=== PATIENT | female | born 1950 | race Caucasian/White ===

== ENCOUNTER 2017-01-24 08:54 | Inpatient (IN) | payer MEDICARE, OTHER ==
[~2017-01-24] VITALS: Ht 162.6 cm; Wt 71.3 kg
[2017-01-24] MEDS ORDERED: SODIUM CHLORIDE 0.9% 1,000 ML IV ONE ×2 (09:19→13:18)
[2017-01-24] MEDS ORDERED: ONDANSETRON 2MG/ML, 2ML IVPush ONE ×2 (09:30→12:30)
[2017-01-24] MEDS ORDERED: SODIUM CHLORIDE FLUSH 10ML SYR IVF ONE (09:30)
[2017-01-24] MEDS ORDERED: SODIUM CHLORIDE 0.9% 1,000ML IVBOLUS ONE (09:30)
[2017-01-24] MEDS ORDERED: MORPHINE SULFATE 4 MG/ML, 1ML ONE ×5 (09:32→13:57)
[2017-01-24] MEDS ORDERED: ONDANSETRON 2MG/ML, 2ML ONE ×2 (09:33→13:58)
[2017-01-24] MEDS: MORPHINE SULFATE 4 MG/ML, 1ML IVPush PRN ×6 (09:58→20:58)
[2017-01-24] MEDS ORDERED: ESCI10TA PO (10:06)
[2017-01-24] MEDS ORDERED: TRAM100T2 PO (10:06)
[2017-01-24] MEDS ORDERED: ALPR0.25 PO (10:06)
[2017-01-24 10:17] LABS: HEMOGLOBIN 13.7 g/dL (11.7-16.4)
[2017-01-24 10:30] LABS: ASPARTATE AMINO TRANSFERASE 21 U/L (15-37); BLOOD UREA NITROGEN 9 mg/dL (7-18)
[2017-01-24] MEDS ORDERED: OMNIPAQUE 350 MG/ML, 100ML BOTTLE ONE (10:57)
[2017-01-24 12:10] LABS: PATH.CAST-FLAG NOT PRESENT; SPERM-FLAG NOT PRESENT; SRC-FLAG NOT PRESENT; XTAL-FLAG NOT PRESENT; YLC-FLAG NOT PRESENT
[2017-01-24] MEDS ORDERED: ENALAPRILAT 1.25 MG/ML, 2ML IVPush PRN (13:30)
[2017-01-24] MEDS ORDERED: MORPHINE SULFATE 4 MG/ML, 1ML IVPush PRN (13:30)
[2017-01-24] MEDS ORDERED: ONDANSETRON 2MG/ML, 2ML IVPush PRN (13:30)
[2017-01-24] MEDS ORDERED: LORazepam 2 MG/ML, 1ML IVPush PRN (13:30)
[2017-01-24] MEDS ORDERED: SODIUM CHLORIDE FLUSH 10ML SYR IVF PRN (13:30)
[2017-01-24 14:42] VITALS: BP 149/82
[2017-01-24] MEDS: SODIUM CHLORIDE 0.9% 1,000 ML IV SCH ×2 (15:19→21:17)
[2017-01-24] MEDS ORDERED: POTASSIUM PHOSPHATE 22 MEQ in SODIUM CHLORIDE 0.9% 500 ML IV ONE (15:30)
[2017-01-24] MEDS: ONDANSETRON 2MG/ML, 2ML IVP PRN (18:59)
[2017-01-24 19:26] VITALS: BP 164/90
[2017-01-25] MEDS: MORPHINE SULFATE 4 MG/ML, 1ML IVPush PRN ×3 (00:24→08:50)
[2017-01-25 01:46] VITALS: BP 174/96
[2017-01-25] MEDS ORDERED: morphine SULFATE 10 MG/ML, 1ML ONE (03:28)
[2017-01-25] MEDS: ONDANSETRON 2MG/ML, 2ML IVP PRN ×2 (03:35→08:50)
[2017-01-25 03:38] VITALS: BP 176/84
[2017-01-25] MEDS: SODIUM CHLORIDE 0.9% 1,000 ML IV SCH (05:17)
[2017-01-25 05:55] LABS: BLOOD UREA NITROGEN 7 mg/dL (7-18)
[2017-01-25 05:58] LABS: ASPARTATE AMINO TRANSFERASE 21 U/L (15-37)
[2017-01-25 06:00] VITALS: BP 167/87
[2017-01-25 06:09] LABS: HEMOGLOBIN 14.3 g/dL (11.7-16.4)
[2017-01-25 07:37] VITALS: BP 166/84
[2017-01-25] MEDS: CITALOPRAM 20 MG TABLET PO SCH (08:45)
[2017-01-25] MEDS: PANTOPRAZOLE 40 MG IV IVP SCH (08:45)
[2017-01-25] MEDS ORDERED: HYDROcodone/APAP 5/325 TABLET PO PRN (11:30)
[2017-01-25] MEDS: LISINOPRIL 5 MG TABLET PO SCH (14:18)
[2017-01-25] MEDS ORDERED: ENALAPRILAT 1.25 MG/ML, 2ML IVPush PRN (14:31)
[2017-01-25 15:41] VITALS: BP 167/78
[2017-01-25] MEDS: ACETAMINOPHEN 325 MG TABLET PO PRN ×2 (17:44→23:37)
[2017-01-25 19:20] VITALS: BP 178/93
[2017-01-26 02:23] VITALS: BP 164/89
[2017-01-26 05:40] LABS: HEMOGLOBIN 13.6 g/dL (11.7-16.4)
[2017-01-26 05:58] LABS: BLOOD UREA NITROGEN 11 mg/dL (7-18)
[2017-01-26] MEDS: ACETAMINOPHEN 325 MG TABLET PO PRN (06:28)
[2017-01-26] MEDS: PANTOPRAZOLE 40 MG IV IVP SCH (08:12)
[2017-01-26] MEDS: LISINOPRIL 5 MG TABLET PO SCH (08:12)
[2017-01-26] MEDS: CITALOPRAM 20 MG TABLET PO SCH (08:12)
[2017-01-26 08:29] VITALS: BP 154/77
[2017-01-26] MEDS ORDERED: DOCU-30 PO (09:45)
[2017-01-26] MEDS ORDERED: LISI5TAB7 PO (09:45)
== END 2017-01-26 10:34 | disposition home or self-care (01) | DRG 375 ==
LOC: ED 10:55 → EDIP 13:17 → 3NW 14:34
PROVIDERS: ADMIT Family Medicine; ATTEND Family Medicine
PROC: 0T9B70Z Drainage of Bladder with Drainage Device, Via Natural or Artificial Opening (ICD-10-PCS; principal; 2017-01-24)
DX: C19 Malignant neoplasm of rectosigmoid junction (principal); K56.60 Unspecified intestinal obstruction; N13.30 Unspecified hydronephrosis; C78.6 Secondary malignant neoplasm of retroperitoneum and peritoneum; R11.2 Nausea with vomiting, unspecified; D72.829 Elevated white blood cell count, unspecified; G47.00 Insomnia, unspecified; N32.0 Bladder-neck obstruction; F41.9 Anxiety disorder, unspecified; R73.9 Hyperglycemia, unspecified; F32.9 Major depressive disorder, single episode, unspecified; I10 Essential (primary) hypertension; Z80.8 Family history of malignant neoplasm of other organs or systems; Z90.710 Acquired absence of both cervix and uterus
CPT/HCPCS: 36415; 74022; 74177; 80048; 80053; 81001; 83735; 84100; 85025; 85610; 85730; 93005; 96361; 96374; 96375; 96376; J2405; Q9967; C9113; J7030; J7040

== ENCOUNTER → 2017-02-13 | Outpatient (CLI) | payer MEDICARE, OTHER ==
[~2017-02-13] MED LIST: ALPR0.25 PO; DOCU-30 PO; ESCI10TA PO; LISI5TAB7 PO; TRAM100T2 PO
== END | disposition home or self-care (01) ==
LOC: WOUND 10:49
PROVIDERS: ATTEND Internal Medicine
DX: Z46.89 Encounter for fitting and adjustment of other specified devices (principal); C56.9 Malignant neoplasm of unspecified ovary
CPT/HCPCS: G0463; WOU0463

== ENCOUNTER 2017-02-17 07:13 | Inpatient (IN) | payer MEDICARE ==
[~2017-02-17] VITALS: Ht 162.6 cm; Wt 65.6 kg
[2017-02-17 08:00] VITALS: BP 145/88
[2017-02-17 09:44] LABS: ASPARTATE AMINO TRANSFERASE 30 U/L (15-37); BLOOD UREA NITROGEN 15 mg/dL (7-18)
[2017-02-17] MEDS ORDERED: MIDAZOLAM 1 MG/ML, 2ML ONE (10:57)
[2017-02-17] MEDS ORDERED: FENTANYL PF 250 MCG/5ML ONE (10:57)
[2017-02-17] MEDS ORDERED: ROPIvacaine/PF 0.2%, 20 ML ONE (12:06)
[2017-02-17] MEDS ORDERED: SUCCINYLCHOLINE 20 MG/ML, 10ML ONE (12:40)
[2017-02-17] MEDS ORDERED: PROPOFOL 10 MG/ML, 20ML ONE (12:40)
[2017-02-17] MEDS ORDERED: CEFAZOLIN 1,000 MG ONE (12:40)
[2017-02-17] MEDS ORDERED: hydrALAzine 20 MG/ML, 1ML ONE (12:40)
[2017-02-17] MEDS ORDERED: DEXAMETHASONE 4 MG/ML, 1ML ONE (12:40)
[2017-02-17] MEDS ORDERED: ROCURONIUM 10 MG/ML ONE (12:40)
[2017-02-17] MEDS ORDERED: HYDROmorphone 1 MG/ML, 1ML ONE (14:48)
[2017-02-17] MEDS ORDERED: THROMBIN 20,000 UNIT VIAL TP ONE (15:00)
[2017-02-17] MEDS ORDERED: EPHEDRINE 50 MG/ML, 1ML IVPush PRN (15:00)
[2017-02-17] MEDS ORDERED: DO NOT GIVE MC SCH (15:00)
[2017-02-17] MEDS: BUPIVACAINE/PF 0.5%, 30ML 62.5 ML in SODIUM CHLORIDE 0.9% 187.5 ML EPIDCONT SCH (15:15)
[2017-02-17 15:56] LABS: DIFF TOTAL CELLS COUNTED 100 CELL DIFF
[2017-02-17 16:17] LABS: ANISOCYTOSIS 1+
[2017-02-17 16:18] LABS: LARGE PLATELETS 1+
[2017-02-17 16:20] LABS: VERIFY COUNTS? YES
[2017-02-17] MEDS ORDERED: LABETALOL 5MG/ML, 20ML IV PRN (16:30)
[2017-02-17] MEDS ORDERED: METOCLOPRAMIDE 5 MG/ML, 2ML IV PRN (16:30)
[2017-02-17] MEDS ORDERED: ONDANSETRON 2MG/ML, 2ML IVPush PRN (16:30)
[2017-02-17] MEDS ORDERED: OXYcodone 5 MG/5 ML ORAL.SOL UDC PO PRN (16:30)
[2017-02-17] MEDS ORDERED: ACETAMINOPHEN 325 MG TABLET PO PRN (16:30)
[2017-02-17] MEDS ORDERED: FENTANYL PF 100 MCG/2ML IV PRN (16:30)
[2017-02-17] MEDS ORDERED: hydrALAzine 20 MG/ML, 1ML IV PRN (16:30)
[2017-02-17] MEDS ORDERED: ALBUMIN HUMAN 5% 500 ML ONE (16:59)
[2017-02-17] MEDS ORDERED: PLEASE ENTER HEIGHT AND WEIGHT MC SCH ×2 (17:00→19:00)
[2017-02-17] MEDS ORDERED: HYDROmorphone 2 MG/ML, 1ML ONE (17:28)
[2017-02-17] MEDS: HYDROmorphone 1 MG/ML, 1ML IV PRN ×2 (17:32→17:45)
[2017-02-17 17:40] LABS: BLOOD UREA NITROGEN 11 mg/dL (7-18)
[2017-02-17 18:30] VITALS: BP 80/46
[2017-02-17] MEDS ORDERED: POTASSIUM CHLORIDE 20 MEQ in D5%-LACTATED RINGERS 1,000 ML IV SCH (18:30)
[2017-02-17 18:44] LABS: DIFF TOTAL CELLS COUNTED 100 CELL DIFF
[2017-02-17 19:17] LABS: ANISOCYTOSIS 1+
[2017-02-17 19:18] LABS: LARGE PLATELETS 1+; VERIFY COUNTS? YES
[2017-02-17] MEDS ORDERED: MORPHINE SULFATE 4 MG/ML, 1ML ONE (20:43)
[2017-02-17] MEDS: morphine SULFATE 10 MG/ML, 1ML IV PRN (20:51)
[2017-02-17] MEDS ORDERED: SODIUM CHLORIDE 0.9% 1,000 ML IVBOLUS PRN (21:23)
[2017-02-17] MEDS ORDERED: KETOROLAC 30 MG/1 ML IM PRN (22:00)
[2017-02-17] MEDS: KETOROLAC 30 MG/1 ML IV PRN (23:17)
[2017-02-17] MEDS: PLEASE ENTER HEIGHT AND WEIGHT MC SCH (23:30)
[2017-02-18] VITALS (12 sets, daily range): BP systolic 93–139; BP diastolic 58–79
[2017-02-18] MEDS: morphine SULFATE 10 MG/ML, 1ML IV PRN ×6 (00:11→18:39)
[2017-02-18] MEDS ORDERED: MORPHINE SULFATE 4 MG/ML, 1ML ONE (02:40)
[2017-02-18] MEDS: PLEASE ENTER HEIGHT AND WEIGHT MC SCH (04:48)
[2017-02-18 06:09] LABS: BLOOD UREA NITROGEN 16 mg/dL (7-18)
[2017-02-18 06:19] LABS: DIFF TOTAL CELLS COUNTED 100 CELL DIFF
[2017-02-18 06:21] LABS: VERIFY COUNTS? YES
[2017-02-18 06:22] LABS: LARGE PLATELETS 1+
[2017-02-18] MEDS: KETOROLAC 30 MG/1 ML IV PRN ×3 (07:17→22:25)
[2017-02-18] MEDS ORDERED: D5%-LR+KCL 20MEQ 1,000 ML IV SCH (07:30)
[2017-02-18] MEDS: ONDANSETRON 2MG/ML, 2ML IV PRN (13:05)
[2017-02-18] MEDS: BUPIVACAINE/PF 0.5%, 30ML 62.5 ML in SODIUM CHLORIDE 0.9% 187.5 ML EPIDCONT SCH (15:41)
[2017-02-18] MEDS: D5%-LR+KCL 20MEQ 1,000 ML IV SCH ×2 (16:27→23:53)
[2017-02-19] MEDS ORDERED: MORPHINE SULFATE 4 MG/ML, 1ML ONE ×2 (00:20→21:46)
[2017-02-19] MEDS: ONDANSETRON 2MG/ML, 2ML IV PRN ×3 (00:29→16:52)
[2017-02-19] MEDS: morphine SULFATE 10 MG/ML, 1ML IV PRN ×4 (00:31→21:52)
[2017-02-19 01:20] VITALS: BP 141/84
[2017-02-19] MEDS ORDERED: MEPERIDINE/PF 50 MG/ML ONE ×2 (01:25→04:47)
[2017-02-19] MEDS: MEPERIDINE/PF 25MG/0.5ML IV PRN ×2 (01:28→04:52)
[2017-02-19] MEDS: KETOROLAC 30 MG/1 ML IV PRN ×3 (04:00→18:11)
[2017-02-19 07:36] VITALS: BP 109/64
[2017-02-19] MEDS: D5%-LR+KCL 20MEQ 1,000 ML IV SCH ×2 (08:16→17:02)
[2017-02-19] MEDS: BUPIVACAINE/PF 0.5%, 30ML 62.5 ML in SODIUM CHLORIDE 0.9% 187.5 ML EPIDCONT SCH (12:08)
[2017-02-19 13:33] VITALS: BP 124/74
[2017-02-19 20:00] VITALS: BP 144/79
[2017-02-20] MEDS: KETOROLAC 30 MG/1 ML IV PRN ×3 (00:51→13:37)
[2017-02-20] MEDS: D5%-LR+KCL 20MEQ 1,000 ML IV SCH ×2 (00:51→14:35)
[2017-02-20 02:42] VITALS: BP 164/86
[2017-02-20] MEDS: morphine SULFATE 10 MG/ML, 1ML IV PRN ×4 (03:03→18:34)
[2017-02-20] MEDS: BUPIVACAINE/PF 0.5%, 30ML 62.5 ML in SODIUM CHLORIDE 0.9% 187.5 ML EPIDCONT SCH ×2 (04:00→23:44)
[2017-02-20 06:35] VITALS: BP 172/90
[2017-02-20] MEDS: ONDANSETRON 2MG/ML, 2ML IV PRN ×2 (11:02→18:33)
[2017-02-20] MEDS: OXYcodone/APAP 7.5/325MG TABLET PO PRN (14:05)
[2017-02-20 15:50] VITALS: BP 157/82
[2017-02-20 20:00] VITALS: BP 152/81
[2017-02-20 22:15] VITALS: BP 158/86
[2017-02-21] MEDS: OXYcodone/APAP 7.5/325MG TABLET PO PRN ×4 (00:18→21:28)
[2017-02-21] MEDS: D5%-LR+KCL 20MEQ 1,000 ML IV SCH ×2 (00:49→14:40)
[2017-02-21] MEDS: morphine SULFATE 10 MG/ML, 1ML IV PRN ×2 (00:49→04:06)
[2017-02-21] MEDS: KETOROLAC 30 MG/1 ML IV PRN ×3 (00:49→17:51)
[2017-02-21 02:00] VITALS: BP 167/77
[2017-02-21 03:05] LABS: BLOOD UREA NITROGEN 19 mg/dL (7-18)
[2017-02-21 04:07] LABS: DIFF TOTAL CELLS COUNTED 100 CELL DIFF
[2017-02-21 04:11] LABS: ANISOCYTOSIS 1+; HYPOCHROMIA 1+; VERIFY COUNTS? YES
[2017-02-21 04:12] LABS: GIANT PLATELETS 1+
[2017-02-21 08:05] VITALS: BP 164/80
[2017-02-21 14:00] VITALS: BP 165/80
[2017-02-21 20:00] VITALS: BP 171/81
[2017-02-22 00:30] VITALS: BP 164/82
[2017-02-22] MEDS: KETOROLAC 30 MG/1 ML IV PRN ×4 (00:33→21:05)
[2017-02-22] MEDS: morphine SULFATE 10 MG/ML, 1ML IV PRN ×2 (00:33→01:44)
[2017-02-22] MEDS: D5%-LR+KCL 20MEQ 1,000 ML IV SCH ×4 (00:40→21:06)
[2017-02-22] MEDS: BUPIVACAINE/PF 0.5%, 30ML 62.5 ML in SODIUM CHLORIDE 0.9% 187.5 ML EPIDCONT SCH (01:10)
[2017-02-22 07:53] VITALS: BP 145/81
[2017-02-22] MEDS: OXYcodone/APAP 7.5/325MG TABLET PO PRN ×3 (11:08→22:29)
[2017-02-22 12:47] VITALS: BP 147/73
[2017-02-22 19:30] VITALS: BP 157/78
[2017-02-23] MEDS: BUPIVACAINE/PF 0.5%, 30ML 62.5 ML in SODIUM CHLORIDE 0.9% 187.5 ML EPIDCONT SCH (01:15)
[2017-02-23] MEDS: KETOROLAC 30 MG/1 ML IV PRN (02:58)
[2017-02-23] MEDS: OXYcodone/APAP 10/325MG TABLET PO PRN ×3 (04:47→19:16)
[2017-02-23 04:55] VITALS: BP 163/78
[2017-02-23 07:25] LABS: BLOOD UREA NITROGEN 12 mg/dL (7-18)
[2017-02-23] MEDS: D5%-LR+KCL 20MEQ 1,000 ML IV SCH (07:41)
[2017-02-23 07:58] VITALS: BP 151/71
[2017-02-23 10:46] LABS: PATH.CAST-FLAG NOT PRESENT; SPERM-FLAG NOT PRESENT; SRC-FLAG NOT PRESENT; XTAL-FLAG NOT PRESENT; YLC-FLAG NOT PRESENT
[2017-02-23 14:09] VITALS: BP 154/81
[2017-02-23 19:38] VITALS: BP 157/80
[2017-02-23] MEDS ORDERED: MORPHINE SULFATE 4 MG/ML, 1ML ONE (23:24)
[2017-02-23] MEDS: morphine SULFATE 10 MG/ML, 1ML IV PRN (23:28)
[2017-02-24] MEDS: OXYcodone/APAP 10/325MG TABLET PO PRN ×4 (01:49→19:02)
[2017-02-24 02:00] VITALS: BP 142/77
[2017-02-24 05:57] LABS: DIFF TOTAL CELLS COUNTED 100 CELL DIFF
[2017-02-24 06:00] LABS: ANISOCYTOSIS 1+; VERIFY COUNTS? YES
[2017-02-24 06:01] LABS: HYPOCHROMIA 1+; LARGE PLATELETS 1+; POLYCHROMASIA 1+
[2017-02-24 08:16] VITALS: BP 150/74
[2017-02-24 14:03] VITALS: BP 145/80
[2017-02-24] MEDS: CIPROFLOXACIN/PMX 400MG/200ML 200 ML IV SCH (15:12)
[2017-02-24 19:51] VITALS: BP 143/74
[2017-02-24] MEDS: morphine SULFATE 10 MG/ML, 1ML IV PRN (23:10)
[2017-02-25] MEDS: OXYcodone/APAP 10/325MG TABLET PO PRN ×4 (01:12→20:52)
[2017-02-25] MEDS: CIPROFLOXACIN/PMX 400MG/200ML 200 ML IV SCH ×2 (03:00→13:41)
[2017-02-25 03:04] VITALS: BP 135/71
[2017-02-25 08:00] VITALS: BP 154/93
[2017-02-25 14:16] VITALS: BP 147/84
[2017-02-25] MEDS: NYSTATIN 500,000 UNITS/5 ML UDC PO SCH ×2 (16:00→21:09)
[2017-02-25 19:52] VITALS: BP 139/79
[2017-02-26] MEDS: CIPROFLOXACIN/PMX 400MG/200ML 200 ML IV SCH ×2 (01:23→15:24)
[2017-02-26 02:15] VITALS: BP 135/75
[2017-02-26] MEDS: OXYcodone/APAP 10/325MG TABLET PO PRN ×4 (04:33→21:52)
[2017-02-26 05:11] LABS: BLOOD UREA NITROGEN 10 mg/dL (7-18)
[2017-02-26 05:49] LABS: DIFF TOTAL CELLS COUNTED 100 CELL DIFF
[2017-02-26 05:51] LABS: LARGE PLATELETS 1+; POLYCHROMASIA 1+; VERIFY COUNTS? YES
[2017-02-26 05:52] LABS: ANISOCYTOSIS 1+
[2017-02-26] MEDS: NYSTATIN 500,000 UNITS/5 ML UDC PO SCH ×4 (06:18→20:50)
[2017-02-26 07:42] VITALS: BP 146/74
[2017-02-26 13:45] VITALS: BP 138/80
[2017-02-26 18:56] VITALS: BP 134/74
[2017-02-27] MEDS: CIPROFLOXACIN/PMX 400MG/200ML 200 ML IV SCH ×2 (01:30→13:29)
[2017-02-27 01:41] VITALS: BP 135/72
[2017-02-27] MEDS: OXYcodone/APAP 10/325MG TABLET PO PRN ×4 (06:05→22:32)
[2017-02-27] MEDS: NYSTATIN 500,000 UNITS/5 ML UDC PO SCH ×4 (06:11→22:32)
[2017-02-27 06:40] VITALS: BP 145/78
[2017-02-27 13:08] VITALS: BP 123/71
[2017-02-27 19:39] VITALS: BP 148/69
[2017-02-28] MEDS: CIPROFLOXACIN/PMX 400MG/200ML 200 ML IV SCH ×2 (01:46→13:45)
[2017-02-28 02:45] VITALS: BP 144/75
[2017-02-28] MEDS: OXYcodone/APAP 10/325MG TABLET PO PRN ×4 (05:37→18:44)
[2017-02-28] MEDS: NYSTATIN 500,000 UNITS/5 ML UDC PO SCH ×4 (05:44→21:47)
[2017-02-28 06:39] LABS: BLOOD UREA NITROGEN 6 mg/dL (7-18)
[2017-02-28 06:52] LABS: DIFF TOTAL CELLS COUNTED 100 CELL DIFF
[2017-02-28 06:53] LABS: VERIFY COUNTS? YES
[2017-02-28 06:54] LABS: ANISOCYTOSIS 1+; POLYCHROMASIA 1+
[2017-02-28 06:55] LABS: LARGE PLATELETS 1+
[2017-02-28 07:46] VITALS: BP 134/70
[2017-02-28 13:54] VITALS: BP 132/73
[2017-02-28 22:48] VITALS: BP 139/70
[2017-03-01] MEDS: CIPROFLOXACIN/PMX 400MG/200ML 200 ML IV SCH (01:54)
[2017-03-01] MEDS: OXYcodone/APAP 10/325MG TABLET PO PRN ×5 (02:16→23:10)
[2017-03-01 02:24] VITALS: BP 145/72
[2017-03-01] MEDS: NYSTATIN 500,000 UNITS/5 ML UDC PO SCH ×4 (06:02→23:10)
[2017-03-01 08:55] VITALS: BP 131/73
[2017-03-01 16:08] VITALS: BP 133/71
[2017-03-01] MEDS: LEVOFLOXACIN 750 MG TABLET PO SCH (17:45)
[2017-03-01 18:54] VITALS: BP 125/72
[2017-03-02 03:30] VITALS: BP 135/78
[2017-03-02] MEDS: NYSTATIN 500,000 UNITS/5 ML UDC PO SCH ×4 (06:00→21:00)
[2017-03-02] MEDS: OXYcodone/APAP 10/325MG TABLET PO PRN ×4 (06:14→22:33)
[2017-03-02 07:33] VITALS: BP 133/79
[2017-03-02 07:44] LABS: BLOOD UREA NITROGEN 7 mg/dL (7-18)
[2017-03-02] MEDS: LEVOFLOXACIN 750 MG TABLET PO SCH (08:12)
[2017-03-02 15:20] VITALS: BP 137/69
[2017-03-02 20:04] VITALS: BP 124/72
[2017-03-03 03:00] VITALS: BP 119/76
[2017-03-03] MEDS: OXYcodone/APAP 10/325MG TABLET PO PRN ×5 (03:36→22:28)
[2017-03-03 05:46] LABS: DIFF TOTAL CELLS COUNTED 100 CELL DIFF
[2017-03-03 05:47] LABS: VERIFY COUNTS? YES
[2017-03-03 05:48] LABS: ANISOCYTOSIS 1+; POLYCHROMASIA 1+
[2017-03-03] MEDS: NYSTATIN 500,000 UNITS/5 ML UDC PO SCH ×4 (06:00→21:00)
[2017-03-03] MEDS: LEVOFLOXACIN 750 MG TABLET PO SCH (07:57)
[2017-03-03 08:02] VITALS: BP 128/74
[2017-03-03 15:37] VITALS: BP 127/76
[2017-03-03] MEDS ORDERED: CYSTO CONRAY II 250 ML VIAL UR ONE (17:05)
[2017-03-03 19:02] VITALS: BP 125/80
[2017-03-04 02:00] VITALS: BP 117/71
[2017-03-04] MEDS: NYSTATIN 500,000 UNITS/5 ML UDC PO SCH ×2 (03:23→11:00)
[2017-03-04] MEDS: OXYcodone/APAP 10/325MG TABLET PO PRN ×3 (03:58→13:26)
[2017-03-04 08:06] LABS: DIFF TOTAL CELLS COUNTED 100 CELL DIFF
[2017-03-04 08:46] LABS: ANISOCYTOSIS 1+; HYPOCHROMIA 1+; VERIFY COUNTS? YES
[2017-03-04 09:00] VITALS: BP 123/73
[2017-03-04] MEDS: LEVOFLOXACIN 750 MG TABLET PO SCH (09:02)
[2017-03-04] MEDS ORDERED: LEVO500T33 PO (11:48)
[2017-03-04] MEDS ORDERED: OXYC-229 PO (11:51)
[2017-03-04] MEDS ORDERED: ONDA-39 PO (11:53)
== END 2017-03-04 14:30 | disposition home health service (06) | DRG 330 ==
LOC: 4NOR 07:13 → 3NW 17:11
PROVIDERS: ADMIT Specialist; ATTEND Specialist
PROC: 0DTF0ZZ Resection of Right Large Intestine, Open Approach (ICD-10-PCS; 2017-02-17)
PROC: 07BC0ZX Excision of Pelvis Lymphatic, Open Approach, Diagnostic (ICD-10-PCS; 2017-02-17)
PROC: 0DBS0ZZ (ICD-10-PCS; 2017-02-17)
PROC: 0WBF0ZX Excision of Abdominal Wall, Open Approach, Diagnostic (ICD-10-PCS; 2017-02-17)
PROC: 0D1B0Z4 Bypass Ileum to Cutaneous, Open Approach (ICD-10-PCS; 2017-02-17)
PROC: 0DBW0ZZ Excision of Peritoneum, Open Approach (ICD-10-PCS; 2017-02-17)
PROC: 0DTN0ZZ Resection of Sigmoid Colon, Open Approach (ICD-10-PCS; 2017-02-17)
PROC: 0UT70ZZ Resection of Bilateral Fallopian Tubes, Open Approach (ICD-10-PCS; 2017-02-17)
PROC: 0UT20ZZ Resection of Bilateral Ovaries, Open Approach (ICD-10-PCS; 2017-02-17)
PROC: 30240N1 Transfusion of Nonautologous Red Blood Cells into Central Vein, Open Approach (ICD-10-PCS; principal; 2017-02-18)
DX: C18.7 Malignant neoplasm of sigmoid colon (principal); C56.9 Malignant neoplasm of unspecified ovary; N13.30 Unspecified hydronephrosis; C18.1 Malignant neoplasm of appendix; N39.0 Urinary tract infection, site not specified; C18.2 Malignant neoplasm of ascending colon; C78.6 Secondary malignant neoplasm of retroperitoneum and peritoneum; R19.00 Intra-abdominal and pelvic swelling, mass and lump, unspecified site; D64.9 Anemia, unspecified; F32.9 Major depressive disorder, single episode, unspecified; F41.9 Anxiety disorder, unspecified; G89.29 Other chronic pain; B96.1 Klebsiella pneumoniae [K. pneumoniae] as the cause of diseases classified elsewhere
CPT/HCPCS: 36415; 71010; 74000; 74430; 80048; 80053; 81001; 82962; 85014; 85018; 85025; 86850; 86900; 86923; 87040; 87070; 87077; 87086; 87186; 87205; 88112; 88304; 88305; 88307; 88341; 88342; 88360; C1729; J0690; J0744; J1100; J1170; J1885; J2175; J2250; J2405; J2704; J2795; J3010; J3480; J3490; P9045; Q9958; C1765; G0461; J0330; J0360; J2270; J7050; J7121; P9016

== ENCOUNTER → 2017-03-12 | Outpatient (CLI) | payer MEDICARE ==
[~2017-03-12] MED LIST changes: +LEVO500T33 PO; +ONDA-39 PO; +OXYC-229 PO
== END | disposition home or self-care (01) ==
LOC: WOUND 13:40
PROVIDERS: ATTEND Internal Medicine Cardiovascular Disease
DX: T81.89XD Other complications of procedures, not elsewhere classified, subsequent encounter (principal); I10 Essential (primary) hypertension; F41.9 Anxiety disorder, unspecified; F32.9 Major depressive disorder, single episode, unspecified; G47.00 Insomnia, unspecified; Z85.43 Personal history of malignant neoplasm of ovary; Z46.89 Encounter for fitting and adjustment of other specified devices; Z90.710 Acquired absence of both cervix and uterus; Y83.8 Other surgical procedures as the cause of abnormal reaction of the patient, or of later complication, without mention of misadventure at the time of the procedure
CPT/HCPCS: G0463; WOU0463

== ENCOUNTER → 2017-03-16 | Outpatient (CLI) | payer MEDICARE | END | disposition home or self-care (01) | LOC: WOUND 13:26 | PROVIDERS: ATTEND Internal Medicine | DX: T81.89XD Other complications of procedures, not elsewhere classified, subsequent encounter (principal); F41.9 Anxiety disorder, unspecified; I10 Essential (primary) hypertension; G47.00 Insomnia, unspecified; F32.9 Major depressive disorder, single episode, unspecified; Z46.89 Encounter for fitting and adjustment of other specified devices; Z85.43 Personal history of malignant neoplasm of ovary; Y83.8 Other surgical procedures as the cause of abnormal reaction of the patient, or of later complication, without mention of misadventure at the time of the procedure | CPT/HCPCS: G0463; WOU0463 ==

== ENCOUNTER → 2017-03-23 | Outpatient (CLI) | payer MEDICARE | END | disposition home or self-care (01) | LOC: WOUND 13:43 | PROVIDERS: ATTEND Physician Assistant | DX: T81.89XD Other complications of procedures, not elsewhere classified, subsequent encounter (principal); C56.9 Malignant neoplasm of unspecified ovary; F41.9 Anxiety disorder, unspecified; G47.00 Insomnia, unspecified; F32.9 Major depressive disorder, single episode, unspecified; Z85.038 Personal history of other malignant neoplasm of large intestine; Z90.710 Acquired absence of both cervix and uterus; Z46.89 Encounter for fitting and adjustment of other specified devices; Y83.8 Other surgical procedures as the cause of abnormal reaction of the patient, or of later complication, without mention of misadventure at the time of the procedure | CPT/HCPCS: G0463; WOU0463 ==

== ENCOUNTER 2017-04-29 02:18 | Emergency (ER) | payer MEDICARE ==
[~2017-04-29] VITALS: Ht 165.1 cm; Wt 62.0 kg
[2017-04-29 02:23] VITALS: BP 116/68
[2017-04-29] MEDS ORDERED: OXYC1TAB8 PO (09:46)
[2017-04-29] MEDS ORDERED: FENT1PAT77 TD (11:41)
[2017-04-29] MEDS ORDERED: LACT1CAP24 PO (16:57)
[2017-04-29] MEDS ORDERED: CEFD300C37 PO ×2 (16:57→17:25)
== END 2017-04-29 02:26 ==
LOC: ED 02:21
DX: R07.89 Other chest pain (principal); Z90.710 Acquired absence of both cervix and uterus; Z85.09 Personal history of malignant neoplasm of other digestive organs
CPT/HCPCS: 99283

== ENCOUNTER 2017-04-29 02:21 | Inpatient (IN) | payer MEDICARE ==
[~2017-04-29] VITALS: Ht 162.6 cm; Wt 56.2 kg
[2017-04-29] MEDS ORDERED: ASPIRIN 81 MG TABLET CHEW PO ONE (03:30)
[2017-04-29 03:40] LABS: BLOOD UREA NITROGEN 23 mg/dL (7-18)
[2017-04-29 03:45] LABS: IS PT STATUS REG ER OR PRE ER? YES
[2017-04-29] MEDS ORDERED: OMNIPAQUE 350 MG/ML, 100ML BOTTLE ONE (04:27)
[2017-04-29] MEDS ORDERED: MORPHINE SULFATE 4 MG/ML, 1ML ONE (04:51)
[2017-04-29] MEDS ORDERED: ONDANSETRON 2MG/ML, 2ML ONE (04:51)
[2017-04-29] MEDS ORDERED: ONDANSETRON 2MG/ML, 2ML IVPush ONE (05:00)
[2017-04-29] MEDS ORDERED: MORPHINE SULFATE 4 MG/ML, 1ML IVPush PRN ×2 (05:00→05:30)
[2017-04-29] MEDS ORDERED: ACETAMINOPHEN 325 MG TABLET PO PRN (05:30)
[2017-04-29] MEDS ORDERED: ENOXAPARIN 40 MG/0.4 ML SQ SCH (05:30)
[2017-04-29] MEDS ORDERED: morphine SULFATE 10 MG/ML, 1ML IVPush PRN (05:30)
[2017-04-29] MEDS ORDERED: ONDANSETRON 2MG/ML, 2ML IVPush PRN (05:30)
[2017-04-29] MEDS ORDERED: SODIUM CHLORIDE 0.9% 1,000 ML IV SCH (06:00)
[2017-04-29] MEDS ORDERED: ONDANSETRON 8 MG TABLET PO PRN (06:00)
[2017-04-29] MEDS ORDERED: FENTANYL 25 MCG PATCH TD SCH (06:00)
[2017-04-29 06:27] VITALS: BP 107/71
[2017-04-29 06:30] VITALS: BP 107/71
[2017-04-29 08:00] LABS: IS PT STATUS REG ER OR PRE ER? NO
[2017-04-29] MEDS: SODIUM CHLORIDE 0.9% 1,000 ML IV SCH ×2 (08:51→14:41)
[2017-04-29] MEDS: OXYcodone/APAP 7.5/325MG TABLET PO PRN ×2 (08:57→13:51)
[2017-04-29] MEDS ORDERED: OXYC1TAB8 PO (09:46)
[2017-04-29] MEDS ORDERED: REGADENOSON 0.4 MG/5 ML SYRINGE ONE (10:45)
[2017-04-29] MEDS ORDERED: FENT1PAT77 TD (11:41)
[2017-04-29 11:52] LABS: IS PT STATUS REG ER OR PRE ER? NO
[2017-04-29 14:55] VITALS: BP 118/80
[2017-04-29] MEDS ORDERED: CEFD300C37 PO ×2 (16:57→17:25)
[2017-04-29] MEDS ORDERED: LACT1CAP24 PO (16:57)
[2017-04-29] MEDS ORDERED: CEFDINIR 300 MG CAPSULE PO ONE (17:00)
[2017-04-29] MEDS ORDERED: CEFDINIR 300 MG CAPSULE PO SCH (17:00)
== END 2017-04-29 20:39 | disposition home or self-care (01) | DRG 375 ==
LOC: ED 05:33 → EDIP 05:38 → 5SO 06:15
PROVIDERS: ADMIT Internal Medicine; ATTEND Internal Medicine
DX: C18.1 Malignant neoplasm of appendix (principal); E87.1 Hypo-osmolality and hyponatremia; N39.0 Urinary tract infection, site not specified; E21.3 Hyperparathyroidism, unspecified; M94.0 Chondrocostal junction syndrome [Tietze]; E86.0 Dehydration; G89.3 Neoplasm related pain (acute) (chronic); I51.7 Cardiomegaly; N28.9 Disorder of kidney and ureter, unspecified; Z80.8 Family history of malignant neoplasm of other organs or systems; Z82.49 Family history of ischemic heart disease and other diseases of the circulatory system; Z90.710 Acquired absence of both cervix and uterus; I10 Essential (primary) hypertension
CPT/HCPCS: 36415; 71275; 78452; 80048; 81001; 82040; 82330; 82397; 83970; 84443; 84484; 85025; 87077; 87086; 87186; 93005; 93017; 93306; 99285; J1650; J2785; Q0162; Q9967; A9502; C9898; J7030

== ENCOUNTER → 2017-05-10 | Outpatient (CLI) | payer MEDICARE ==
[~2017-05-10] MED LIST changes: +CEFD300C37 PO; +FENT1PAT77 TD; +LACT1CAP24 PO; +OXYC1TAB8 PO
== END | disposition home or self-care (01) ==
LOC: WOUND 14:27
PROVIDERS: ATTEND Internal Medicine Cardiovascular Disease
DX: Z93.2 Ileostomy status (principal); Z90.710 Acquired absence of both cervix and uterus
CPT/HCPCS: G0463; WOU0463

== ENCOUNTER → 2017-05-14 | Outpatient (CLI) | payer MEDICARE | END | disposition home or self-care (01) | LOC: WOUND 08:30 | PROVIDERS: ATTEND Physician Assistant | DX: T81.89XD Other complications of procedures, not elsewhere classified, subsequent encounter (principal); I10 Essential (primary) hypertension; E21.3 Hyperparathyroidism, unspecified; F41.9 Anxiety disorder, unspecified; F32.9 Major depressive disorder, single episode, unspecified; Z93.2 Ileostomy status; Z85.828 Personal history of other malignant neoplasm of skin; Z90.710 Acquired absence of both cervix and uterus; Z86.73 Personal history of transient ischemic attack (TIA), and cerebral infarction without residual deficits; Z85.038 Personal history of other malignant neoplasm of large intestine; Z85.43 Personal history of malignant neoplasm of ovary; Y83.8 Other surgical procedures as the cause of abnormal reaction of the patient, or of later complication, without mention of misadventure at the time of the procedure | CPT/HCPCS: G0463; WOU0463 ==

== ENCOUNTER 2017-06-04 16:33 | Emergency (ER) | payer MEDICARE ==
[~2017-06-04] VITALS: Ht 162.6 cm; Wt 55.8 kg
[2017-06-04] MEDS ORDERED: SODIUM CHLORIDE 0.9% 1,000ML IVBOLUS ONE (17:00)
[2017-06-04] MEDS ORDERED: ONDANSETRON 2MG/ML, 2ML IVPush ONE (17:00)
[2017-06-04] MEDS ORDERED: SODIUM CHLORIDE FLUSH 10ML SYR IVF ONE (17:00)
[2017-06-04] MEDS ORDERED: ONDANSETRON 2MG/ML, 2ML ONE (17:09)
[2017-06-04 17:39] LABS: ASPARTATE AMINO TRANSFERASE 32 U/L (15-37); BLOOD UREA NITROGEN 19 mg/dL (7-18)
[2017-06-04] MEDS ORDERED: HYDROmorphone 1 MG/ML, 1ML ONE ×2 (18:06→19:56)
[2017-06-04] MEDS ORDERED: OMNIPAQUE 350 MG/ML, 100ML BOTTLE ONE (18:26)
[2017-06-04] MEDS: HYDROmorphone 1 MG/ML, 1ML IVPush PRN ×2 (18:26→20:00)
[2017-06-04] MEDS ORDERED: CEFTRIAXONE PMX 1GM/50ML 50 ML ONE (19:54)
[2017-06-04] MEDS ORDERED: CEFTRIAXONE PMX 1GM/50ML 50 ML IVPB ONE (20:00)
[2017-06-04 20:07] VITALS: BP 122/72
[2017-06-04] MEDS ORDERED: ONDANSETRON ODT 4 MG ONE (20:29)
== END 2017-06-04 20:46 | disposition home or self-care (01) ==
LOC: ED 17:42
DX: N30.90 Cystitis, unspecified without hematuria (principal); N39.0 Urinary tract infection, site not specified; Z85.038 Personal history of other malignant neoplasm of large intestine
CPT/HCPCS: 36415; 74177; 80053; 81001; 83690; 85025; 87086; 96361; 96365; 96375; 96376; 99285; J0696; J1170; J2405; J7030; Q9967

== ENCOUNTER 2017-06-15 13:58 | Inpatient (IN) | payer MEDICARE ==
[~2017-06-15] VITALS: Ht 162.6 cm; Wt 63.0 kg
[2017-06-15] MEDS ORDERED: SODIUM CHLORIDE 0.9% 1,000ML IVBOLUS ONE (14:30)
[2017-06-15] MEDS ORDERED: ONDANSETRON 2MG/ML, 2ML IVPush ONE (14:30)
[2017-06-15] MEDS ORDERED: FAMOTIDINE 20 MG/2 ML IVP ONE (14:30)
[2017-06-15] MEDS ORDERED: HYDROmorphone 1 MG/ML, 1ML ONE ×2 (14:57→16:43)
[2017-06-15] MEDS ORDERED: ONDANSETRON 2MG/ML, 2ML ONE (14:58)
[2017-06-15] MEDS ORDERED: FAMOTIDINE 20 MG/2 ML ONE (14:58)
[2017-06-15] MEDS: HYDROmorphone 1 MG/ML, 1ML IVPush PRN ×2 (15:02→16:46)
[2017-06-15 15:07] LABS: ASPARTATE AMINO TRANSFERASE 28 U/L (15-37); BLOOD UREA NITROGEN 26 mg/dL (7-18)
[2017-06-15 15:14] LABS: HEMATOCRIT 45.1 % (34.6-47.8); HEMOGLOBIN 14.6 g/dL (11.7-16.4); WHITE BLOOD COUNT 7.5 x10^3/uL (3.4-10)
[2017-06-15 15:50] LABS: DIFF TOTAL CELLS COUNTED 100 CELL DIFF
[2017-06-15] MEDS ORDERED: SODIUM CHLORIDE 0.9% 1,000 ML IV ONE (15:59)
[2017-06-15] MEDS ORDERED: ONDANSETRON 2MG/ML, 2ML IVPush PRN (16:00)
[2017-06-15] MEDS ORDERED: HYDROmorphone 1 MG/ML, 1ML IVPush PRN (16:00)
[2017-06-15] MEDS ORDERED: SODIUM CHLORIDE FLUSH 10ML SYR IVF PRN (16:00)
[2017-06-15 16:22] LABS: VERIFY COUNTS? YES
[2017-06-15] MEDS ORDERED: ONDA8TAB12 PO (16:52)
[2017-06-15] MEDS: SODIUM CHLORIDE 0.9% 1,000 ML IV SCH (16:54)
[2017-06-15] MEDS ORDERED: HYDROcodone/APAP 5/325 TABLET PO PRN (17:00)
[2017-06-15] MEDS ORDERED: ACETAMINOPHEN 325 MG TABLET PO PRN (17:00)
[2017-06-15] MEDS ORDERED: LABETALOL 5MG/ML, 20ML IVPush PRN (17:00)
[2017-06-15] MEDS ORDERED: PROMETHAZINE 25 MG/ML, 1ML IM PRN (17:00)
[2017-06-15 17:39] VITALS: BP 150/86
[2017-06-15 18:41] VITALS: BP 122/72
[2017-06-15] MEDS: MORPHINE SULFATE 4 MG/ML, 1ML IVPush PRN ×2 (19:20→22:42)
[2017-06-15] MEDS: OXYcodone/APAP 7.5/325MG TABLET PO PRN (20:27)
[2017-06-15] MEDS: FENTANYL 12 MCG PATCH TD SCH (20:30)
[2017-06-15] MEDS: FENTANYL REMOVE PATCH NOTE XX SCH (20:30)
[2017-06-15] MEDS: ENOXAPARIN 40 MG/0.4 ML SQ SCH (21:02)
[2017-06-15] MEDS: ONDANSETRON 2MG/ML, 2ML IVPush PRN (22:42)
[2017-06-16 02:17] VITALS: BP 144/75
[2017-06-16] MEDS: SODIUM CHLORIDE 0.9% 1,000 ML IV SCH ×3 (03:11→19:00)
[2017-06-16] MEDS: OXYcodone/APAP 7.5/325MG TABLET PO PRN ×4 (03:34→21:58)
[2017-06-16 05:01] LABS: HEMATOCRIT 37.5 % (34.6-47.8); WHITE BLOOD COUNT 5.1 x10^3/uL (3.4-10)
[2017-06-16 05:08] LABS: BLOOD UREA NITROGEN 21 mg/dL (7-18)
[2017-06-16 08:46] VITALS: BP 120/71
[2017-06-16] MEDS: ONDANSETRON 2MG/ML, 2ML IVPush PRN (09:44)
[2017-06-16] MEDS: MORPHINE SULFATE 4 MG/ML, 1ML IVPush PRN (09:44)
[2017-06-16] MEDS: CEFDINIR 300 MG CAPSULE PO SCH ×2 (12:07→20:40)
[2017-06-16 18:35] VITALS: BP 133/73
[2017-06-16] MEDS: ENOXAPARIN 40 MG/0.4 ML SQ SCH (20:40)
[2017-06-17 01:34] VITALS: BP 118/59
[2017-06-17] MEDS: SODIUM CHLORIDE 0.9% 1,000 ML IV SCH ×3 (02:17→19:10)
[2017-06-17] MEDS: OXYcodone/APAP 7.5/325MG TABLET PO PRN ×4 (02:18→15:16)
[2017-06-17 05:23] LABS: BLOOD UREA NITROGEN 18 mg/dL (7-18)
[2017-06-17 08:15] VITALS: BP 117/73
[2017-06-17] MEDS: CEFDINIR 300 MG CAPSULE PO SCH ×2 (08:51→21:48)
[2017-06-17 13:19] VITALS: BP 117/72
[2017-06-17 13:22] VITALS: BP 101/66
[2017-06-17] MEDS: ONDANSETRON 2MG/ML, 2ML IVPush PRN (15:18)
[2017-06-17] MEDS: MORPHINE SULFATE 4 MG/ML, 1ML IVPush PRN ×2 (16:55→20:46)
[2017-06-17 18:44] VITALS: BP 135/74
[2017-06-17] MEDS ORDERED: OXYcodone/APAP 7.5/325MG TABLET PO SCH (19:00)
[2017-06-17] MEDS: OXYcodone/APAP 7.5/325MG TABLET PO SCH ×2 (19:09→23:34)
[2017-06-17] MEDS ORDERED: LABETALOL 5MG/ML, 20ML IVPush PRN (19:30)
[2017-06-17] MEDS: ENOXAPARIN 40 MG/0.4 ML SQ SCH (21:48)
[2017-06-18] MEDS: MORPHINE SULFATE 4 MG/ML, 1ML IVPush PRN ×4 (01:41→20:43)
[2017-06-18 02:15] VITALS: BP 123/72
[2017-06-18] MEDS: OXYcodone/APAP 7.5/325MG TABLET PO SCH ×2 (03:24→07:20)
[2017-06-18] MEDS: SODIUM CHLORIDE 0.9% 1,000 ML IV SCH ×3 (03:24→17:42)
[2017-06-18 06:40] VITALS: BP 137/82
[2017-06-18 08:44] LABS: BLOOD UREA NITROGEN 13 mg/dL (7-18)
[2017-06-18] MEDS: CEFDINIR 300 MG CAPSULE PO SCH ×2 (09:31→20:42)
[2017-06-18 14:15] VITALS: BP 143/79
[2017-06-18] MEDS ORDERED: morphine SULFATE ORAL.CONC 20 MG/ML PO PRN (18:30)
[2017-06-18 19:34] VITALS: BP 147/84
[2017-06-18] MEDS: FENTANYL 12 MCG PATCH TD SCH (20:30)
[2017-06-18] MEDS: FENTANYL REMOVE PATCH NOTE XX SCH (20:30)
[2017-06-18] MEDS: ENOXAPARIN 40 MG/0.4 ML SQ SCH (20:42)
[2017-06-19] MEDS: MORPHINE SULFATE 4 MG/ML, 1ML IVPush PRN ×3 (00:20→06:21)
[2017-06-19] MEDS: SODIUM CHLORIDE 0.9% 1,000 ML IV SCH ×2 (01:53→10:04)
[2017-06-19 02:00] VITALS: BP 143/75
[2017-06-19 08:00] VITALS: BP 148/79
[2017-06-19] MEDS: CEFDINIR 300 MG CAPSULE PO SCH ×2 (08:13→20:43)
[2017-06-19 08:26] LABS: BLOOD UREA NITROGEN 7 mg/dL (7-18)
[2017-06-19] MEDS ORDERED: POTASSIUM CHLORIDE 20 MEQ TAB.ER.PRT PO ONE ×2 (11:00→14:00)
[2017-06-19] MEDS: ONDANSETRON 2MG/ML, 2ML IVPush PRN (11:37)
[2017-06-19 13:54] VITALS: BP 163/83
[2017-06-19] MEDS ORDERED: POTASSIUM CHLORIDE 20 MEQ PACKET PO ONE (16:00)
[2017-06-19] MEDS: ACETAMINOPHEN 325 MG TABLET PO PRN (16:05)
[2017-06-19] MEDS ORDERED: morphine SULFATE ORAL.CONC 20 MG/ML PO PRN (16:30)
[2017-06-19 19:51] VITALS: BP 153/82
[2017-06-19] MEDS: ENOXAPARIN 40 MG/0.4 ML SQ SCH (20:43)
[2017-06-20] MEDS: morphine SULFATE ORAL.CONC 20 MG/ML PO PRN ×3 (00:29→06:04)
[2017-06-20 02:06] VITALS: BP 160/81
[2017-06-20 04:42] LABS: BLOOD UREA NITROGEN 6 mg/dL (7-18)
[2017-06-20] MEDS: ONDANSETRON 2MG/ML, 2ML IVPush PRN ×2 (06:10→19:07)
[2017-06-20 07:51] VITALS: BP 161/90
[2017-06-20] MEDS: DEXAMETHASONE 4 MG TABLET PO SCH ×4 (07:57→20:46)
[2017-06-20] MEDS: ACETAMINOPHEN 325 MG TABLET PO PRN ×4 (07:57→21:38)
[2017-06-20] MEDS: POTASSIUM CHLORIDE 20 MEQ PACKET PO SCH ×2 (07:58→08:00)
[2017-06-20] MEDS: CEFDINIR 300 MG CAPSULE PO SCH (07:58)
[2017-06-20] MEDS ORDERED: POTASSIUM CHLORIDE 40 MEQ in SODIUM CHLORIDE 0.9% 500 ML IV ONE (09:00)
[2017-06-20] MEDS: OMEPRAZOLE 20 MG CAPSULE.DR PO SCH (11:11)
[2017-06-20 13:21] VITALS: BP 160/91
[2017-06-20 19:06] VITALS: BP 146/81
[2017-06-20] MEDS: ENOXAPARIN 40 MG/0.4 ML SQ SCH (20:47)
[2017-06-21 01:23] VITALS: BP 150/71
[2017-06-21] MEDS: ACETAMINOPHEN 325 MG TABLET PO PRN ×4 (01:50→13:56)
[2017-06-21 05:15] LABS: BLOOD UREA NITROGEN 11 mg/dL (7-18)
[2017-06-21] MEDS: ONDANSETRON 2MG/ML, 2ML IVPush PRN ×2 (05:43→15:04)
[2017-06-21 06:42] VITALS: BP 146/77
[2017-06-21] MEDS: DEXAMETHASONE 4 MG TABLET PO SCH ×2 (07:57→15:12)
[2017-06-21] MEDS: OMEPRAZOLE 20 MG CAPSULE.DR PO SCH (07:57)
[2017-06-21 13:34] VITALS: BP 168/82
[2017-06-21] MEDS ORDERED: OMEP-110 PO (14:20)
[2017-06-21] MEDS ORDERED: DEXA4TAB PO (14:20)
[2017-06-21] MEDS ORDERED: MORP15TA3 PO (14:20)
[2017-06-21] MEDS ORDERED: TRAM50TA2 PO (14:20)
[2017-06-21] MEDS ORDERED: MORP100S3 PO (14:20)
== END 2017-06-22 14:08 | disposition home or self-care (01) | DRG 375 ==
LOC: ED 14:51 → EDIP 15:59 → 3NW 17:38 → DCLOUNGE 06-21 15:49
PROVIDERS: ADMIT Family Medicine; ATTEND Family Medicine
DX: C78.6 Secondary malignant neoplasm of retroperitoneum and peritoneum (principal); N17.9 Acute kidney failure, unspecified; E87.6 Hypokalemia; E21.3 Hyperparathyroidism, unspecified; R19.7 Diarrhea, unspecified; R63.4 Abnormal weight loss; K21.9 Gastro-esophageal reflux disease without esophagitis; Z51.5 Encounter for palliative care; R39.15 Urgency of urination; Z85.038 Personal history of other malignant neoplasm of large intestine; Z90.710 Acquired absence of both cervix and uterus; Z68.23 Body mass index [BMI] 23.0-23.9, adult; Z90.49 Acquired absence of other specified parts of digestive tract; Z80.8 Family history of malignant neoplasm of other organs or systems; Z90.722 Acquired absence of ovaries, bilateral; Z93.2 Ileostomy status
CPT/HCPCS: 36415; 76705; 80048; 80053; 81003; 82570; 83690; 84300; 85025; 87077; 87086; 87324; 93005; 96374; 96375; 96376; J1170; J1650; J2405; J2550; J3480; J7030; J7040; S0028

== ENCOUNTER 2017-06-23 11:05 | Inpatient (IN) | payer MEDICARE ==
[~2017-06-23] VITALS: Ht 162.6 cm; Wt 58.3 kg
[~2017-06-23 11:05] MED LIST changes: +DEXA4TAB PO; +DOCU-131 PO; -DOCU-30 PO; -LEVO500T33 PO; +LEVO500T47 PO; +MORP100S3 PO; +MORP15TA3 PO; +OMEP-110 PO; -ONDA-39 PO; +ONDA4TAB12 PO; +ONDA8TAB12 PO; -OXYC-229 PO; +OXYC-307 PO; +TRAM50TA2 PO
[2017-06-23] MEDS ORDERED: SODIUM CHLORIDE FLUSH 10ML SYR IVF ONE (12:00)
[2017-06-23] MEDS ORDERED: SODIUM CHLORIDE 0.9% 1,000ML IVBOLUS ONE (12:00)
[2017-06-23 12:33] LABS: HEMATOCRIT 39.7 % (34.6-47.8); HEMOGLOBIN 12.9 g/dL (11.7-16.4); WHITE BLOOD COUNT 20.2 x10^3/uL (3.4-10)
[2017-06-23 12:49] LABS: BLOOD UREA NITROGEN 21 mg/dL (7-18)
[2017-06-23 12:53] LABS: ASPARTATE AMINO TRANSFERASE 22 U/L (15-37)
[2017-06-23 13:01] LABS: DIFF TOTAL CELLS COUNTED 100 CELL DIFF
[2017-06-23 13:02] LABS: VERIFY COUNTS? YES
[2017-06-23] MEDS ORDERED: HYDROmorphone 1 MG/ML, 1ML ONE (13:30)
[2017-06-23] MEDS ORDERED: HYDROmorphone 1 MG/ML, 1ML IM ONE (13:30)
[2017-06-23] MEDS ORDERED: OMNIPAQUE 350 MG/ML, 100ML BOTTLE ONE (15:17)
[2017-06-23] MEDS ORDERED: SODIUM CHLORIDE FLUSH 10ML SYR IVF PRN (16:00)
[2017-06-23] MEDS ORDERED: SODIUM CHLORIDE 0.9% 1,000 ML IV SCH ×2 (17:00→19:30)
[2017-06-23] MEDS ORDERED: FENTANYL REMOVE PATCH NOTE XX SCH (17:29)
[2017-06-23] MEDS ORDERED: BISACODYL 10 MG SUPP PR PRN (17:30)
[2017-06-23] MEDS: ENOXAPARIN 40 MG/0.4 ML SQ SCH (17:30)
[2017-06-23] MEDS ORDERED: ACETAMINOPHEN 325 MG TABLET PO PRN (17:30)
[2017-06-23] MEDS ORDERED: ONDANSETRON ODT 4 MG PO PRN (17:30)
[2017-06-23] MEDS ORDERED: FENTANYL 75 MCG PATCH TD SCH (17:30)
[2017-06-23] MEDS ORDERED: POLYETHYLENE GLYCOL 17 GM PACKET PO PRN (17:30)
[2017-06-23] MEDS ORDERED: ONDANSETRON 2MG/ML, 2ML IVPush PRN (17:30)
[2017-06-23] MEDS ORDERED: DOCUSATE 100 MG CAPSULE PO PRN (17:30)
[2017-06-23] MEDS ORDERED: LABETALOL 5MG/ML, 20ML IVPush PRN (17:30)
[2017-06-23] MEDS: HYDROmorphone 2 MG/ML, 1ML IVPush PRN ×2 (18:18→21:15)
[2017-06-23 18:27] VITALS: BP 177/79
[2017-06-23] MEDS: FENTANYL REMOVE PATCH NOTE XX SCH (20:00)
[2017-06-23] MEDS ORDERED: DEXAMETHASONE 4 MG TABLET PO SCH (21:00)
[2017-06-23] MEDS: FAMOTIDINE 20 MG/2 ML IVPush SCH (21:15)
[2017-06-23 21:28] VITALS: BP 171/91
[2017-06-23 22:42] VITALS: BP 170/88
[2017-06-24] MEDS: HYDROmorphone 2 MG/ML, 1ML IVPush PRN ×8 (00:12→23:16)
[2017-06-24 02:39] VITALS: BP 167/83
[2017-06-24] MEDS: SODIUM CHLORIDE 0.9% 1,000 ML IV SCH ×4 (02:41→23:15)
[2017-06-24 05:37] LABS: HEMATOCRIT 35.1 % (34.6-47.8); HEMOGLOBIN 11.3 g/dL (11.7-16.4); WHITE BLOOD COUNT 22.5 x10^3/uL (3.4-10)
[2017-06-24 05:51] LABS: ASPARTATE AMINO TRANSFERASE 20 U/L (15-37); BLOOD UREA NITROGEN 17 mg/dL (7-18)
[2017-06-24 06:25] VITALS: BP 178/76
[2017-06-24] MEDS: FAMOTIDINE 20 MG/2 ML IVPush SCH (07:59)
[2017-06-24] MEDS: OMEPRAZOLE 20 MG CAPSULE.DR PO SCH (07:59)
[2017-06-24] MEDS: ONDANSETRON 2MG/ML, 2ML IVPush PRN ×3 (13:13→22:30)
[2017-06-24 14:00] VITALS: BP 173/96
[2017-06-24] MEDS: ENOXAPARIN 40 MG/0.4 ML SQ SCH (16:58)
[2017-06-24 20:48] VITALS: BP 165/91
[2017-06-25 01:20] VITALS: BP 175/91
[2017-06-25] MEDS: HYDROmorphone 2 MG/ML, 1ML IVPush PRN ×6 (02:11→20:47)
[2017-06-25] MEDS: ONDANSETRON 2MG/ML, 2ML IVPush PRN ×3 (02:18→20:50)
[2017-06-25 03:08] VITALS: BP 170/84
[2017-06-25 03:13] LABS: HEMOGLOBIN 11.4 g/dL (11.7-16.4); WHITE BLOOD COUNT 22.8 x10^3/uL (3.4-10)
[2017-06-25 03:25] LABS: BLOOD UREA NITROGEN 15 mg/dL (7-18)
[2017-06-25 03:28] LABS: ASPARTATE AMINO TRANSFERASE 43 U/L (15-37)
[2017-06-25] MEDS: SODIUM CHLORIDE 0.9% 1,000 ML IV SCH (06:24)
[2017-06-25] MEDS: OMEPRAZOLE 20 MG CAPSULE.DR PO SCH (07:30)
[2017-06-25 07:35] VITALS: BP 186/84
[2017-06-25] MEDS ORDERED: POTASSIUM CHLORIDE 20 MEQ TAB.ER.PRT PO SCH (08:15)
[2017-06-25] MEDS: LABETALOL 5MG/ML, 20ML IVPush PRN (09:23)
[2017-06-25] MEDS: FENTANYL 25 MCG PATCH TD SCH (09:31)
[2017-06-25] MEDS ORDERED: POTASSIUM CHLORIDE 40 MEQ in SODIUM CHLORIDE 0.9% 500 ML IV ONE (13:00)
[2017-06-25] MEDS ORDERED: POTASSIUM CHLORIDE 40 MEQ in DEXTROSE 5% 500 ML IV ONE (13:00)
[2017-06-25] MEDS ORDERED: LIDOCAINE 1%, 20ML ONE (13:17)
[2017-06-25] MEDS ORDERED: FLUMAZENIL 0.1 MG/1 ML, 5ML ONE (13:31)
[2017-06-25] MEDS ORDERED: NALOXONE 1 MG/ML, 2ML ONE (13:31)
[2017-06-25] MEDS ORDERED: MIDAZOLAM 1 MG/ML, 5ML ONE (13:31)
[2017-06-25] MEDS ORDERED: FENTANYL PF 100 MCG/2ML ONE (13:31)
[2017-06-25 14:15] LABS: CYTOLOGY BODY FLUID RECD INTO PATHOLOGY; CYTOLOGY BODY FLUID SOURCE PERITONEAL FLUID
[2017-06-25 14:40] VITALS: BP 178/95
[2017-06-25 14:45] VITALS: BP 178/95
[2017-06-25] MEDS ORDERED: VANCOMYCIN PER PHARMACY MC PRN (16:00)
[2017-06-25] MEDS ORDERED: PHARMACOKINETIC MONITORING MC PRN (16:00)
[2017-06-25] MEDS: PIPERACILLIN/TAZO/PMX 3.375GM 50 ML IV SCH ×2 (16:51→22:36)
[2017-06-25] MEDS ORDERED: PHARMACOKINETIC CONSULTATION MC ONE (17:00)
[2017-06-25] MEDS: ENOXAPARIN 40 MG/0.4 ML SQ SCH (17:31)
[2017-06-25] MEDS: VANCOMYCIN 1,200 MG in SODIUM CHLORIDE 0.9% 250 ML IV SCH (17:31)
[2017-06-25 19:38] VITALS: BP 149/84
[2017-06-26] MEDS: ONDANSETRON 2MG/ML, 2ML IVPush PRN ×3 (01:56→11:30)
[2017-06-26] MEDS: HYDROmorphone 2 MG/ML, 1ML IVPush PRN ×3 (01:56→10:37)
[2017-06-26] MEDS: SODIUM CHLORIDE 0.9% 1,000 ML IV SCH ×2 (01:56→14:22)
[2017-06-26 02:18] VITALS: BP 175/85
[2017-06-26 02:47] LABS: HEMATOCRIT 35.5 % (34.6-47.8); HEMOGLOBIN 11.5 g/dL (11.7-16.4); WHITE BLOOD COUNT 26.3 x10^3/uL (3.4-10)
[2017-06-26 02:59] LABS: ASPARTATE AMINO TRANSFERASE 38 U/L (15-37); BLOOD UREA NITROGEN 13 mg/dL (7-18)
[2017-06-26] MEDS: PIPERACILLIN/TAZO/PMX 3.375GM 50 ML IV SCH ×3 (04:53→17:04)
[2017-06-26 07:00] VITALS: BP 192/79
[2017-06-26] MEDS: OMEPRAZOLE 20 MG CAPSULE.DR PO SCH (07:43)
[2017-06-26 10:41] VITALS: BP 173/79
[2017-06-26 10:44] VITALS: BP 172/78
[2017-06-26] MEDS ORDERED: POTASSIUM CHLORIDE 20 MEQ TAB.ER.PRT PO ONE (13:30)
[2017-06-26] MEDS: KETOROLAC 30 MG/1 ML IVPush SCH ×2 (15:16→20:50)
[2017-06-26 15:45] VITALS: BP 150/76
[2017-06-26] MEDS: VANCOMYCIN 1,200 MG in SODIUM CHLORIDE 0.9% 250 ML IV SCH (17:50)
[2017-06-26] MEDS: ENOXAPARIN 40 MG/0.4 ML SQ SCH (18:50)
[2017-06-26] MEDS: FENTANYL REMOVE PATCH NOTE XX SCH (20:00)
[2017-06-26] MEDS ORDERED: ZOLPIDEM 5MG TABLET PO ONE (21:00)
[2017-06-26 21:34] VITALS: BP 155/77
[2017-06-27] MEDS: PIPERACILLIN/TAZO/PMX 3.375GM 50 ML IV SCH ×4 (00:48→22:35)
[2017-06-27] MEDS: SODIUM CHLORIDE 0.9% 1,000 ML IV SCH ×3 (03:28→16:46)
[2017-06-27 04:45] VITALS: BP 164/74
[2017-06-27] MEDS: KETOROLAC 30 MG/1 ML IVPush SCH ×4 (05:01→22:36)
[2017-06-27 05:31] LABS: HEMATOCRIT 31.5 % (34.6-47.8); HEMOGLOBIN 10.2 g/dL (11.7-16.4)
[2017-06-27 05:37] LABS: BLOOD UREA NITROGEN 10 mg/dL (7-18)
[2017-06-27] MEDS: OMEPRAZOLE 20 MG CAPSULE.DR PO SCH (07:30)
[2017-06-27 08:02] VITALS: BP 138/73
[2017-06-27] MEDS ORDERED: POTASSIUM CHLORIDE 20 MEQ TAB.ER.PRT PO ONE (09:30)
[2017-06-27 14:08] VITALS: BP 150/72
[2017-06-27] MEDS: LACTOBACILLUS CHEW TABLET PO SCH ×2 (16:45→20:43)
[2017-06-27] MEDS: ENOXAPARIN 40 MG/0.4 ML SQ SCH ×2 (17:30→20:44)
[2017-06-27] MEDS ORDERED: VANCOMYCIN PER PHARMACY MC PRN (19:30)
[2017-06-27 19:57] VITALS: BP 155/74
[2017-06-27] MEDS ORDERED: PHARMACOKINETIC MONITORING MC PRN (20:30)
[2017-06-27] MEDS: CIPROFLOXACIN LACTATE 200 MG in DEXTROSE 5% 100 ML IV SCH (20:44)
[2017-06-27] MEDS ORDERED: SULFAMETH./TRIMETHOPRIM DS 800MG/160MG TABLET PO SCH (21:00)
[2017-06-27] MEDS: ZOLPIDEM 5MG TABLET PO PRN (22:35)
[2017-06-27] MEDS: VANCOMYCIN 1,200 MG in SODIUM CHLORIDE 0.9% 250 ML IV SCH (23:17)
[2017-06-28 03:50] VITALS: BP 145/72
[2017-06-28] MEDS: SODIUM CHLORIDE 0.9% 1,000 ML IV SCH (04:37)
[2017-06-28] MEDS: PIPERACILLIN/TAZO/PMX 3.375GM 50 ML IV SCH ×3 (04:37→17:53)
[2017-06-28] MEDS: KETOROLAC 30 MG/1 ML IVPush SCH ×4 (04:38→23:52)
[2017-06-28] MEDS: LACTOBACILLUS CHEW TABLET PO SCH ×5 (04:38→20:29)
[2017-06-28 05:46] LABS: HEMATOCRIT 32.8 % (34.6-47.8); HEMOGLOBIN 10.8 g/dL (11.7-16.4); WHITE BLOOD COUNT 15.2 x10^3/uL (3.4-10)
[2017-06-28 06:06] LABS: ASPARTATE AMINO TRANSFERASE 10 U/L (15-37); BLOOD UREA NITROGEN 11 mg/dL (7-18)
[2017-06-28] MEDS ORDERED: POTASSIUM CHLORIDE 40 MEQ in SODIUM CHLORIDE 0.9% 500 ML IV ONE (06:30)
[2017-06-28] MEDS ORDERED: NS + 40MEQ KCL 1,000 ML IV ONE (06:30)
[2017-06-28] MEDS ORDERED: MAGNESIUM SULFATE 1 GM in SODIUM CHLORIDE 0.9% 50 ML IV ONE ×2 (07:00→22:00)
[2017-06-28] MEDS: OMEPRAZOLE 20 MG CAPSULE.DR PO SCH (07:30)
[2017-06-28 07:32] VITALS: BP 154/76
[2017-06-28] MEDS ORDERED: POTASSIUM PHOSPHATE 44 MEQ in SODIUM CHLORIDE 0.9% 500 ML IV ONE (08:30)
[2017-06-28] MEDS: FENTANYL 25 MCG PATCH TD SCH (09:08)
[2017-06-28] MEDS: CIPROFLOXACIN LACTATE 200 MG in DEXTROSE 5% 100 ML IV SCH ×2 (10:51→21:55)
[2017-06-28] MEDS ORDERED: LIDOCAINE 1%, 20ML ONE (13:25)
[2017-06-28 13:26] LABS: BLOOD UREA NITROGEN 8 mg/dL (7-18)
[2017-06-28] MEDS ORDERED: POTASSIUM CHLORIDE 20 MEQ TAB.ER.PRT PO ONE (14:00)
[2017-06-28 14:02] VITALS: BP 148/70
[2017-06-28] MEDS: ENOXAPARIN 40 MG/0.4 ML SQ SCH (17:53)
[2017-06-28] MEDS: POTASSIUM CHLORIDE 20 MEQ TAB.ER.PRT PO SCH ×2 (18:19→20:16)
[2017-06-28 18:42] LABS: BLOOD UREA NITROGEN 9 mg/dL (7-18)
[2017-06-28 18:46] LABS: ASPARTATE AMINO TRANSFERASE 12 U/L (15-37)
[2017-06-28 18:47] VITALS: BP 142/78
[2017-06-28] MEDS: ZOLPIDEM 5MG TABLET PO PRN (21:55)
[2017-06-29] MEDS: PIPERACILLIN/TAZO/PMX 3.375GM 50 ML IV SCH ×4 (01:05→17:39)
[2017-06-29] MEDS: VANCOMYCIN 1,200 MG in SODIUM CHLORIDE 0.9% 250 ML IV SCH (02:32)
[2017-06-29 03:51] VITALS: BP 111/65
[2017-06-29] MEDS: SODIUM CHLORIDE 0.9% 1,000 ML IV SCH (04:56)
[2017-06-29 05:42] LABS: BLOOD UREA NITROGEN 9 mg/dL (7-18)
[2017-06-29 05:59] LABS: HEMATOCRIT 33.4 % (34.6-47.8); HEMOGLOBIN 10.9 g/dL (11.7-16.4); WHITE BLOOD COUNT 11.9 x10^3/uL (3.4-10)
[2017-06-29] MEDS: LACTOBACILLUS CHEW TABLET PO SCH ×4 (06:00→20:49)
[2017-06-29] MEDS: POTASSIUM CHLORIDE 20 MEQ TAB.ER.PRT PO SCH ×4 (06:00→20:49)
[2017-06-29] MEDS: KETOROLAC 30 MG/1 ML IVPush SCH ×3 (07:00→17:40)
[2017-06-29 07:29] VITALS: BP 136/72
[2017-06-29] MEDS: OMEPRAZOLE 20 MG CAPSULE.DR PO SCH (07:30)
[2017-06-29] MEDS: CIPROFLOXACIN LACTATE 200 MG in DEXTROSE 5% 100 ML IV SCH ×2 (10:43→20:49)
[2017-06-29 13:14] LABS: BLOOD UREA NITROGEN 10 mg/dL (7-18)
[2017-06-29] MEDS ORDERED: LIDOCAINE 2%, 20ML ONE (14:13)
[2017-06-29 16:25] LABS: BLOOD UREA NITROGEN 9 mg/dL (7-18)
[2017-06-29] MEDS ORDERED: POTASSIUM PHOSPHATE 44 MEQ in SODIUM CHLORIDE 0.9% 500 ML IV ONE (17:00)
[2017-06-29 17:33] VITALS: BP 169/75
[2017-06-29] MEDS: MORPHINE SULFATE 4 MG/ML, 1ML IVPush PRN (18:22)
[2017-06-29] MEDS: ENOXAPARIN 40 MG/0.4 ML SQ SCH (18:22)
[2017-06-29 19:24] VITALS: BP 119/74
[2017-06-29] MEDS: FENTANYL REMOVE PATCH NOTE XX SCH (20:00)
[2017-06-29] MEDS: ZOLPIDEM 5MG TABLET PO PRN (20:59)
[2017-06-30] MEDS: PIPERACILLIN/TAZO/PMX 3.375GM 50 ML IV SCH ×5 (00:05→23:18)
[2017-06-30 00:36] LABS: BLOOD UREA NITROGEN 10 mg/dL (7-18)
[2017-06-30] MEDS ORDERED: KETOROLAC 30 MG/1 ML ONE (01:20)
[2017-06-30] MEDS: KETOROLAC 30 MG/1 ML IVPush SCH ×4 (01:25→17:44)
[2017-06-30] MEDS: VANCOMYCIN 1,200 MG in SODIUM CHLORIDE 0.9% 250 ML IV SCH (02:14)
[2017-06-30] MEDS: SODIUM CHLORIDE 0.9% 1,000 ML IV SCH ×2 (02:15→17:44)
[2017-06-30 02:28] VITALS: BP 109/66
[2017-06-30 05:46] LABS: HEMATOCRIT 30.3 % (34.6-47.8); HEMOGLOBIN 9.9 g/dL (11.7-16.4); WHITE BLOOD COUNT 10.7 x10^3/uL (3.4-10)
[2017-06-30] MEDS: LACTOBACILLUS CHEW TABLET PO SCH ×4 (05:55→21:52)
[2017-06-30] MEDS: POTASSIUM CHLORIDE 20 MEQ TAB.ER.PRT PO SCH ×4 (05:55→21:52)
[2017-06-30 06:10] LABS: BLOOD UREA NITROGEN 11 mg/dL (7-18)
[2017-06-30 06:51] VITALS: BP 120/77
[2017-06-30] MEDS: CIPROFLOXACIN LACTATE 200 MG in DEXTROSE 5% 100 ML IV SCH (07:27)
[2017-06-30] MEDS: OMEPRAZOLE 20 MG CAPSULE.DR PO SCH (07:28)
[2017-06-30 11:12] LABS: BLOOD UREA NITROGEN 10 mg/dL (7-18)
[2017-06-30 12:45] VITALS: BP 122/68
[2017-06-30] MEDS: MORPHINE SULFATE 4 MG/ML, 1ML IVPush PRN ×2 (13:08→23:15)
[2017-06-30 17:26] LABS: BLOOD UREA NITROGEN 10 mg/dL (7-18)
[2017-06-30] MEDS: ENOXAPARIN 40 MG/0.4 ML SQ SCH (17:44)
[2017-06-30 20:00] VITALS: BP 122/71
[2017-06-30] MEDS: ZOLPIDEM 5MG TABLET PO PRN (21:52)
[2017-06-30] MEDS: ONDANSETRON 2MG/ML, 2ML IVPush PRN (22:21)
[2017-07-01] MEDS: KETOROLAC 30 MG/1 ML IVPush SCH (01:43)
[2017-07-01] MEDS: VANCOMYCIN 1,200 MG in SODIUM CHLORIDE 0.9% 250 ML IV SCH (01:43)
[2017-07-01 02:00] VITALS: BP 116/66
[2017-07-01] MEDS: SODIUM CHLORIDE 0.9% 1,000 ML IV SCH ×2 (03:41→16:04)
[2017-07-01] MEDS: MORPHINE SULFATE 4 MG/ML, 1ML IVPush PRN ×3 (04:09→20:22)
[2017-07-01 04:37] LABS: BLOOD UREA NITROGEN 9 mg/dL (7-18)
[2017-07-01] MEDS: LACTOBACILLUS CHEW TABLET PO SCH ×4 (05:24→20:22)
[2017-07-01] MEDS: PIPERACILLIN/TAZO/PMX 3.375GM 50 ML IV SCH ×4 (05:25→22:56)
[2017-07-01 07:23] VITALS: BP 122/74
[2017-07-01] MEDS: POTASSIUM CHLORIDE 20 MEQ TAB.ER.PRT PO SCH (08:48)
[2017-07-01] MEDS: OMEPRAZOLE 20 MG CAPSULE.DR PO SCH (08:48)
[2017-07-01] MEDS: FENTANYL 25 MCG PATCH TD SCH (08:52)
[2017-07-01 14:00] VITALS: BP 136/79
[2017-07-01] MEDS ORDERED: POLYETHYLENE GLYCOL 17 GM PACKET PO PRN (15:00)
[2017-07-01] MEDS ORDERED: DOCUSATE 100 MG CAPSULE PO PRN (15:00)
[2017-07-01] MEDS ORDERED: BISACODYL 10 MG SUPP PR PRN (15:00)
[2017-07-01] MEDS: ENOXAPARIN 40 MG/0.4 ML SQ SCH (16:50)
[2017-07-01 18:23] LABS: BLOOD UREA NITROGEN 10 mg/dL (7-18)
[2017-07-01 19:02] VITALS: BP 130/70
[2017-07-01] MEDS: ONDANSETRON 2MG/ML, 2ML IVPush PRN (20:30)
[2017-07-01] MEDS: ZOLPIDEM 5MG TABLET PO PRN (20:30)
[2017-07-02] MEDS: VANCOMYCIN 1,200 MG in SODIUM CHLORIDE 0.9% 250 ML IV SCH (01:25)
[2017-07-02 02:06] VITALS: BP 138/76
[2017-07-02] MEDS: MORPHINE SULFATE 4 MG/ML, 1ML IVPush PRN ×2 (02:11→13:43)
[2017-07-02] MEDS: ONDANSETRON 2MG/ML, 2ML IVPush PRN ×4 (02:11→20:33)
[2017-07-02] MEDS: LACTOBACILLUS CHEW TABLET PO SCH ×4 (05:05→20:32)
[2017-07-02] MEDS: PIPERACILLIN/TAZO/PMX 3.375GM 50 ML IV SCH ×4 (05:05→23:12)
[2017-07-02] MEDS: SODIUM CHLORIDE 0.9% 1,000 ML IV SCH ×2 (05:05→15:15)
[2017-07-02 05:46] LABS: HEMATOCRIT 30.6 % (34.6-47.8); WHITE BLOOD COUNT 12.8 x10^3/uL (3.4-10)
[2017-07-02 06:14] LABS: ASPARTATE AMINO TRANSFERASE 34 U/L (15-37); BLOOD UREA NITROGEN 11 mg/dL (7-18)
[2017-07-02 06:53] VITALS: BP 148/82
[2017-07-02] MEDS: OMEPRAZOLE 20 MG CAPSULE.DR PO SCH (07:47)
[2017-07-02 13:15] VITALS: BP 152/82
[2017-07-02] MEDS: FENTANYL PF 100 MCG/2ML IVPush PRN (14:03)
[2017-07-02] MEDS: ENOXAPARIN 40 MG/0.4 ML SQ SCH (17:17)
[2017-07-02 19:47] VITALS: BP 152/85
[2017-07-02] MEDS: ZOLPIDEM 5MG TABLET PO PRN (21:53)
[2017-07-03 01:30] VITALS: BP 162/79
[2017-07-03] MEDS: VANCOMYCIN 1,200 MG in SODIUM CHLORIDE 0.9% 250 ML IV SCH (01:37)
[2017-07-03] MEDS: SODIUM CHLORIDE 0.9% 1,000 ML IV SCH ×3 (01:37→18:47)
[2017-07-03] MEDS: ONDANSETRON 2MG/ML, 2ML IVPush PRN ×5 (04:35→20:35)
[2017-07-03] MEDS: FENTANYL PF 100 MCG/2ML IVPush PRN ×3 (04:49→12:51)
[2017-07-03] MEDS: PIPERACILLIN/TAZO/PMX 3.375GM 50 ML IV SCH ×4 (05:10→21:52)
[2017-07-03 05:35] LABS: BLOOD UREA NITROGEN 10 mg/dL (7-18)
[2017-07-03] MEDS: LACTOBACILLUS CHEW TABLET PO SCH ×4 (06:15→20:35)
[2017-07-03 06:50] VITALS: BP 170/88
[2017-07-03] MEDS: OMEPRAZOLE 20 MG CAPSULE.DR PO SCH (08:26)
[2017-07-03 13:40] VITALS: BP 164/91
[2017-07-03] MEDS: ACETAMINOPHEN 325 MG TABLET PO PRN (14:24)
[2017-07-03] MEDS: ENOXAPARIN 40 MG/0.4 ML SQ SCH (18:47)
[2017-07-03 19:12] VITALS: BP 161/86
[2017-07-03] MEDS: ZOLPIDEM 5MG TABLET PO PRN (21:51)
[2017-07-03] MEDS: PROCHLORPERAZINE 5 MG/ML, 2ML IV PRN (23:49)
[2017-07-04 01:40] VITALS: BP 127/72
[2017-07-04] MEDS: ONDANSETRON 2MG/ML, 2ML IVPush PRN ×3 (02:52→15:35)
[2017-07-04] MEDS: VANCOMYCIN 1,200 MG in SODIUM CHLORIDE 0.9% 250 ML IV SCH (02:52)
[2017-07-04] MEDS: PIPERACILLIN/TAZO/PMX 3.375GM 50 ML IV SCH ×2 (04:32→11:00)
[2017-07-04] MEDS: LACTOBACILLUS CHEW TABLET PO SCH ×4 (05:03→20:16)
[2017-07-04] MEDS: SODIUM CHLORIDE 0.9% 1,000 ML IV SCH (05:04)
[2017-07-04 05:21] LABS: BLOOD UREA NITROGEN 9 mg/dL (7-18)
[2017-07-04] MEDS: PROCHLORPERAZINE 5 MG/ML, 2ML IV PRN ×2 (06:41→20:40)
[2017-07-04 06:53] VITALS: BP 143/75
[2017-07-04] MEDS: OMEPRAZOLE 20 MG CAPSULE.DR PO SCH (09:10)
[2017-07-04] MEDS: ACETAMINOPHEN 325 MG TABLET PO PRN ×2 (09:10→15:32)
[2017-07-04] MEDS: FENTANYL 25 MCG PATCH TD SCH (09:22)
[2017-07-04] MEDS: FENTANYL REMOVE PATCH NOTE XX SCH (09:23)
[2017-07-04 13:11] VITALS: BP 146/83
[2017-07-04] MEDS ORDERED: MORPHINE SULFATE 4 MG/ML, 1ML ONE (13:17)
[2017-07-04] MEDS: MORPHINE SULFATE 4 MG/ML, 1ML IVPush PRN (13:21)
[2017-07-04] MEDS ORDERED: POTASSIUM CHLORIDE 20 MEQ TAB.ER.PRT PO ONE (14:00)
[2017-07-04] MEDS ORDERED: IBUPROFEN 200 MG TABLET PO PRN (15:00)
[2017-07-04] MEDS: AMPICILLIN/SULBACTAM 1,500 MG in SODIUM CHLORIDE 0.9% 50 ML IV SCH ×2 (15:32→20:16)
[2017-07-04] MEDS: ENOXAPARIN 40 MG/0.4 ML SQ SCH (17:25)
[2017-07-04] MEDS: IBUPROFEN 200 MG TABLET PO SCH (18:32)
[2017-07-04 19:02] VITALS: BP 175/77
[2017-07-04] MEDS: ACETAMINOPHEN 325 MG TABLET PO SCH (20:16)
[2017-07-04] MEDS: ZOLPIDEM 5MG TABLET PO PRN (21:15)
[2017-07-05] MEDS: IBUPROFEN 200 MG TABLET PO SCH ×5 (00:30→23:12)
[2017-07-05] MEDS: ACETAMINOPHEN 325 MG TABLET PO SCH ×7 (00:30→23:12)
[2017-07-05 01:42] VITALS: BP 155/76
[2017-07-05] MEDS: AMPICILLIN/SULBACTAM 1,500 MG in SODIUM CHLORIDE 0.9% 50 ML IV SCH ×4 (02:35→23:12)
[2017-07-05 05:45] LABS: HEMATOCRIT 30.3 % (34.6-47.8); HEMOGLOBIN 9.9 g/dL (11.7-16.4); WHITE BLOOD COUNT 10.4 x10^3/uL (3.4-10)
[2017-07-05 05:51] LABS: BLOOD UREA NITROGEN 10 mg/dL (7-18)
[2017-07-05 05:57] LABS: ASPARTATE AMINO TRANSFERASE 24 U/L (15-37)
[2017-07-05] MEDS: LACTOBACILLUS CHEW TABLET PO SCH ×4 (06:28→20:03)
[2017-07-05] MEDS ORDERED: MAGNESIUM SULFATE PMX 2GM/50ML 50 ML IV ONE (07:30)
[2017-07-05 07:34] VITALS: BP 144/83
[2017-07-05] MEDS: OMEPRAZOLE 20 MG CAPSULE.DR PO SCH (08:15)
[2017-07-05] MEDS: NEUTRA PHOS K 250 MG TABLET PO SCH ×3 (11:06→20:03)
[2017-07-05] MEDS: ONDANSETRON 2MG/ML, 2ML IVPush PRN (12:34)
[2017-07-05] MEDS: MORPHINE SULFATE 4 MG/ML, 1ML IVPush PRN (12:34)
[2017-07-05 14:24] VITALS: BP 158/84
[2017-07-05] MEDS: ENOXAPARIN 40 MG/0.4 ML SQ SCH (17:48)
[2017-07-05 19:35] VITALS: BP 161/83
[2017-07-05] MEDS: PROCHLORPERAZINE 5 MG/ML, 2ML IV PRN (20:16)
[2017-07-05] MEDS: ZOLPIDEM 5MG TABLET PO PRN (21:41)
[2017-07-06 02:28] VITALS: BP 153/87
[2017-07-06] MEDS: ACETAMINOPHEN 325 MG TABLET PO SCH ×4 (03:48→15:25)
[2017-07-06] MEDS: AMPICILLIN/SULBACTAM 1,500 MG in SODIUM CHLORIDE 0.9% 50 ML IV SCH (04:51)
[2017-07-06] MEDS: LACTOBACILLUS CHEW TABLET PO SCH ×4 (05:55→19:49)
[2017-07-06] MEDS: IBUPROFEN 200 MG TABLET PO SCH ×3 (05:55→17:57)
[2017-07-06 07:22] VITALS: BP 154/83
[2017-07-06] MEDS: OMEPRAZOLE 20 MG CAPSULE.DR PO SCH (07:57)
[2017-07-06] MEDS: PROCHLORPERAZINE 5 MG/ML, 2ML IV PRN (08:08)
[2017-07-06] MEDS: AMPICILLIN/SULBACTAM 3 GM in SODIUM CHLORIDE 0.9% 100 ML IV SCH ×2 (11:35→19:49)
[2017-07-06] MEDS: MORPHINE SULFATE 4 MG/ML, 1ML IVPush PRN ×2 (12:08→22:02)
[2017-07-06] MEDS: ONDANSETRON 2MG/ML, 2ML IVPush PRN ×2 (12:13→21:41)
[2017-07-06 13:48] VITALS: BP 137/85
[2017-07-06] MEDS: ENOXAPARIN 40 MG/0.4 ML SQ SCH (17:54)
[2017-07-06 18:55] VITALS: BP 180/96
[2017-07-06 19:44] VITALS: BP 188/91
[2017-07-06] MEDS: LABETALOL 5MG/ML, 20ML IVPush PRN (19:50)
[2017-07-06 21:29] VITALS: BP 155/85
[2017-07-06] MEDS: ZOLPIDEM 5MG TABLET PO PRN (21:46)
[2017-07-07] MEDS: IBUPROFEN 200 MG TABLET PO SCH ×5 (00:28→23:57)
[2017-07-07 03:00] VITALS: BP 165/83
[2017-07-07] MEDS: LACTOBACILLUS CHEW TABLET PO SCH ×4 (04:18→21:14)
[2017-07-07] MEDS: AMPICILLIN/SULBACTAM 3 GM in SODIUM CHLORIDE 0.9% 100 ML IV SCH ×3 (04:18→19:20)
[2017-07-07 04:46] LABS: HEMATOCRIT 32.3 % (34.6-47.8); HEMOGLOBIN 10.5 g/dL (11.7-16.4); WHITE BLOOD COUNT 10.8 x10^3/uL (3.4-10)
[2017-07-07 04:56] LABS: BLOOD UREA NITROGEN 14 mg/dL (7-18)
[2017-07-07] MEDS: OMEPRAZOLE 20 MG CAPSULE.DR PO SCH (07:43)
[2017-07-07 07:50] VITALS: BP 153/91
[2017-07-07] MEDS: MORPHINE SULFATE 4 MG/ML, 1ML IVPush PRN ×3 (11:12→19:58)
[2017-07-07] MEDS: PROCHLORPERAZINE 5 MG/ML, 2ML IV PRN ×2 (11:12→22:34)
[2017-07-07 12:26] VITALS: BP 160/99
[2017-07-07] MEDS: ENOXAPARIN 40 MG/0.4 ML SQ SCH (17:12)
[2017-07-07 18:33] VITALS: BP 151/85
[2017-07-07] MEDS: ZOLPIDEM 5MG TABLET PO PRN (22:03)
[2017-07-08] MEDS: MORPHINE SULFATE 4 MG/ML, 1ML IVPush PRN ×2 (00:03→04:01)
[2017-07-08] MEDS: ONDANSETRON 2MG/ML, 2ML IVPush PRN ×4 (00:03→17:35)
[2017-07-08 00:54] VITALS: BP 156/90
[2017-07-08 03:55] VITALS: BP 160/90
[2017-07-08] MEDS: AMPICILLIN/SULBACTAM 3 GM in SODIUM CHLORIDE 0.9% 100 ML IV SCH ×3 (03:56→19:56)
[2017-07-08] MEDS: LACTOBACILLUS CHEW TABLET PO SCH ×4 (05:35→19:56)
[2017-07-08] MEDS: IBUPROFEN 200 MG TABLET PO SCH ×3 (05:36→17:35)
[2017-07-08] MEDS: ATENOLOL 25 MG TABLET PO SCH (05:36)
[2017-07-08 07:06] VITALS: BP 162/88
[2017-07-08] MEDS: FENTANYL 75 MCG PATCH TD SCH (08:15)
[2017-07-08] MEDS: OMEPRAZOLE 20 MG CAPSULE.DR PO SCH (08:15)
[2017-07-08] MEDS: PROCHLORPERAZINE 5 MG/ML, 2ML IV PRN (12:44)
[2017-07-08 13:22] VITALS: BP 144/77
[2017-07-08] MEDS: ENOXAPARIN 40 MG/0.4 ML SQ SCH (17:35)
[2017-07-08 18:32] VITALS: BP 142/83
[2017-07-08] MEDS ORDERED: FENTANYL 50 MCG PATCH TD SCH (20:00)
[2017-07-08] MEDS ORDERED: FENTANYL REMOVE PATCH NOTE XX SCH (20:00)
[2017-07-08] MEDS: ZOLPIDEM 5MG TABLET PO PRN (20:49)
[2017-07-09 00:10] VITALS: BP 149/81
[2017-07-09] MEDS: AMPICILLIN/SULBACTAM 3 GM in SODIUM CHLORIDE 0.9% 100 ML IV SCH ×3 (03:36→20:06)
[2017-07-09] MEDS: ATENOLOL 25 MG TABLET PO SCH (05:24)
[2017-07-09] MEDS: IBUPROFEN 200 MG TABLET PO SCH ×5 (05:24→23:45)
[2017-07-09] MEDS: LACTOBACILLUS CHEW TABLET PO SCH ×4 (05:24→20:11)
[2017-07-09 05:57] LABS: HEMATOCRIT 30.4 % (34.6-47.8); HEMOGLOBIN 10.1 g/dL (11.7-16.4); WHITE BLOOD COUNT 6.3 x10^3/uL (3.4-10)
[2017-07-09 06:24] LABS: ASPARTATE AMINO TRANSFERASE 16 U/L (15-37); BLOOD UREA NITROGEN 14 mg/dL (7-18)
[2017-07-09 07:56] VITALS: BP 152/89
[2017-07-09] MEDS: OMEPRAZOLE 20 MG CAPSULE.DR PO SCH (09:06)
[2017-07-09] MEDS: PROCHLORPERAZINE 5 MG/ML, 2ML IV PRN ×2 (10:25→22:30)
[2017-07-09 13:00] VITALS: BP 140/90
[2017-07-09] MEDS ORDERED: LIDOCAINE 2%, 10ML INFIL STA (18:10)
[2017-07-09] MEDS: ENOXAPARIN 40 MG/0.4 ML SQ SCH (18:34)
[2017-07-09 19:21] VITALS: BP 129/73
[2017-07-09] MEDS: ZOLPIDEM 5MG TABLET PO PRN (22:19)
[2017-07-10 01:19] VITALS: BP 127/68
[2017-07-10] MEDS: AMPICILLIN/SULBACTAM 3 GM in SODIUM CHLORIDE 0.9% 100 ML IV SCH ×3 (03:23→20:56)
[2017-07-10] MEDS: IBUPROFEN 200 MG TABLET PO SCH ×3 (05:58→17:37)
[2017-07-10] MEDS: ATENOLOL 25 MG TABLET PO SCH (05:59)
[2017-07-10] MEDS: LACTOBACILLUS CHEW TABLET PO SCH ×4 (05:59→21:00)
[2017-07-10 07:35] VITALS: BP 124/70
[2017-07-10] MEDS: OMEPRAZOLE 20 MG CAPSULE.DR PO SCH (07:51)
[2017-07-10 13:21] VITALS: BP 128/76
[2017-07-10] MEDS: ENOXAPARIN 40 MG/0.4 ML SQ SCH (17:37)
[2017-07-10 19:09] VITALS: BP 128/67
[2017-07-10] MEDS: ZOLPIDEM 5MG TABLET PO PRN (21:14)
[2017-07-10] MEDS: FENTANYL PF 100 MCG/2ML IVPush PRN (22:36)
[2017-07-11] MEDS: AMPICILLIN/SULBACTAM 3 GM in SODIUM CHLORIDE 0.9% 100 ML IV SCH ×3 (03:30→20:55)
[2017-07-11] MEDS: ATENOLOL 25 MG TABLET PO SCH (06:00)
[2017-07-11] MEDS: IBUPROFEN 200 MG TABLET PO SCH ×4 (06:00→17:56)
[2017-07-11] MEDS: LACTOBACILLUS CHEW TABLET PO SCH ×4 (06:00→20:06)
[2017-07-11] MEDS: OMEPRAZOLE 20 MG CAPSULE.DR PO SCH (07:30)
[2017-07-11] MEDS: FENTANYL 75 MCG PATCH TD SCH (08:00)
[2017-07-11 08:17] LABS: ASPARTATE AMINO TRANSFERASE 10 U/L (15-37); BLOOD UREA NITROGEN 20 mg/dL (7-18)
[2017-07-11 08:26] LABS: HEMATOCRIT 31.4 % (34.6-47.8); HEMOGLOBIN 10.2 g/dL (11.7-16.4); WHITE BLOOD COUNT 9.2 x10^3/uL (3.4-10)
[2017-07-11] MEDS ORDERED: POTASSIUM CHLORIDE 40 MEQ in SODIUM CHLORIDE 0.9% 500 ML IV ONE (08:30)
[2017-07-11] MEDS ORDERED: SODIUM CHLORIDE 0.9% 1,000 ML IV ONE (08:30)
[2017-07-11 12:05] VITALS: BP 134/76
[2017-07-11] MEDS ORDERED: OMNIPAQUE 350 MG/ML, 100ML BOTTLE ONE (13:19)
[2017-07-11 13:44] VITALS: BP 133/73
[2017-07-11] MEDS: ENOXAPARIN 40 MG/0.4 ML SQ SCH (17:56)
[2017-07-11 19:57] VITALS: BP 115/69
[2017-07-11] MEDS: ZOLPIDEM 5MG TABLET PO PRN (21:29)
[2017-07-12 02:58] VITALS: BP 145/76
[2017-07-12] MEDS: AMPICILLIN/SULBACTAM 3 GM in SODIUM CHLORIDE 0.9% 100 ML IV SCH ×3 (03:07→19:51)
[2017-07-12 03:23] LABS: HEMATOCRIT 28.6 % (34.6-47.8); HEMOGLOBIN 9.3 g/dL (11.7-16.4); WHITE BLOOD COUNT 16.2 x10^3/uL (3.4-10)
[2017-07-12 03:28] LABS: ASPARTATE AMINO TRANSFERASE 8 U/L (15-37); BLOOD UREA NITROGEN 21 mg/dL (7-18)
[2017-07-12] MEDS: LACTOBACILLUS CHEW TABLET PO SCH ×4 (04:59→19:51)
[2017-07-12] MEDS: IBUPROFEN 200 MG TABLET PO SCH ×5 (05:00→23:00)
[2017-07-12 05:57] VITALS: BP 122/65
[2017-07-12] MEDS: ATENOLOL 25 MG TABLET PO SCH (06:00)
[2017-07-12 07:07] VITALS: BP 125/71
[2017-07-12] MEDS: OMEPRAZOLE 20 MG CAPSULE.DR PO SCH (07:10)
[2017-07-12] MEDS: PROCHLORPERAZINE 5 MG/ML, 2ML IV PRN (08:18)
[2017-07-12] MEDS ORDERED: POTASSIUM CHLORIDE 20 MEQ, MAGNESIUM SULFATE 1 GM, THIAMINE 100 MG, FOLIC ACID 1 MG, MV... IV SCH (10:00)
[2017-07-12] MEDS: D5%-0.9% NACL 1,000 ML IV SCH ×2 (10:49→22:55)
[2017-07-12 13:24] VITALS: BP 127/64
[2017-07-12] MEDS ORDERED: LIDOCAINE 1%, 20ML ONE (13:28)
[2017-07-12] MEDS ORDERED: FENTANYL PF 100 MCG/2ML ONE (13:56)
[2017-07-12] MEDS ORDERED: NALOXONE 1 MG/ML, 2ML ONE (13:56)
[2017-07-12] MEDS ORDERED: MIDAZOLAM 1 MG/ML, 5ML ONE (13:56)
[2017-07-12] MEDS ORDERED: FLUMAZENIL 0.1 MG/1 ML, 5ML ONE (13:56)
[2017-07-12] MEDS: ENOXAPARIN 40 MG/0.4 ML SQ SCH (17:54)
[2017-07-12 20:49] VITALS: BP 159/80
[2017-07-12] MEDS: ZOLPIDEM 5MG TABLET PO PRN (21:29)
[2017-07-12] MEDS: FENTANYL PF 100 MCG/2ML IVPush PRN (21:44)
[2017-07-13 02:45] VITALS: BP 156/79
[2017-07-13] MEDS: AMPICILLIN/SULBACTAM 3 GM in SODIUM CHLORIDE 0.9% 100 ML IV SCH ×3 (04:21→20:29)
[2017-07-13 05:21] LABS: BLOOD UREA NITROGEN 18 mg/dL (7-18)
[2017-07-13 05:27] LABS: HEMATOCRIT 29.1 % (34.6-47.8); HEMOGLOBIN 9.3 g/dL (11.7-16.4); WHITE BLOOD COUNT 10.9 x10^3/uL (3.4-10)
[2017-07-13] MEDS: ATENOLOL 25 MG TABLET PO SCH (06:35)
[2017-07-13] MEDS: IBUPROFEN 200 MG TABLET PO SCH ×3 (06:35→18:00)
[2017-07-13] MEDS: LACTOBACILLUS CHEW TABLET PO SCH ×4 (06:35→20:29)
[2017-07-13] MEDS: D5%-0.9% NACL 1,000 ML IV SCH ×2 (06:37→23:01)
[2017-07-13 07:22] VITALS: BP 148/74
[2017-07-13] MEDS: OMEPRAZOLE 20 MG CAPSULE.DR PO SCH (08:14)
[2017-07-13] MEDS: PROCHLORPERAZINE 5 MG/ML, 2ML IV PRN (08:14)
[2017-07-13] MEDS ORDERED: POTASSIUM CHLORIDE 20 MEQ, MAGNESIUM SULFATE 1 GM, THIAMINE 100 MG, FOLIC ACID 1 MG, MV... IV ONE (10:00)
[2017-07-13] MEDS ORDERED: POTASSIUM CHLORIDE 40 MEQ in SODIUM CHLORIDE 0.9% 500 ML IV ONE (11:30)
[2017-07-13] MEDS: PROCHLORPERAZINE 5 MG/ML, 2ML IV SCH ×2 (12:11→16:56)
[2017-07-13] MEDS ORDERED: FENTANYL 50 MCG PATCH TD SCH (13:00)
[2017-07-13 13:30] VITALS: BP 115/75
[2017-07-13] MEDS: FENTANYL PF 100 MCG/2ML IVPush PRN (16:55)
[2017-07-13] MEDS: ENOXAPARIN 40 MG/0.4 ML SQ SCH (16:56)
[2017-07-13] MEDS ORDERED: POTASSIUM CHLORIDE 20 MEQ TAB.ER.PRT PO SCH (17:00)
[2017-07-13 19:13] VITALS: BP 158/85
[2017-07-13] MEDS: ONDANSETRON 2MG/ML, 2ML IVPush PRN (20:29)
[2017-07-13] MEDS: ZOLPIDEM 5MG TABLET PO PRN (20:48)
[2017-07-14] MEDS: IBUPROFEN 200 MG TABLET PO SCH ×2 (00:13→06:00)
[2017-07-14] MEDS: FENTANYL PF 100 MCG/2ML IVPush PRN ×2 (00:29→06:33)
[2017-07-14] MEDS: ONDANSETRON 2MG/ML, 2ML IVPush PRN ×4 (00:34→23:40)
[2017-07-14 02:50] VITALS: BP 150/80
[2017-07-14] MEDS: AMPICILLIN/SULBACTAM 3 GM in SODIUM CHLORIDE 0.9% 100 ML IV SCH ×3 (03:29→19:45)
[2017-07-14] MEDS: LACTOBACILLUS CHEW TABLET PO SCH (06:33)
[2017-07-14] MEDS: ATENOLOL 25 MG TABLET PO SCH (06:33)
[2017-07-14] MEDS: D5%-0.9% NACL 1,000 ML IV SCH (06:33)
[2017-07-14 07:38] VITALS: BP 157/81
[2017-07-14] MEDS: PROCHLORPERAZINE 5 MG/ML, 2ML IV SCH ×3 (08:23→17:20)
[2017-07-14] MEDS: OMEPRAZOLE 20 MG CAPSULE.DR PO SCH (08:24)
[2017-07-14] MEDS ORDERED: TPN PER PHARMACY MC PRN (10:00)
[2017-07-14] MEDS ORDERED: FENTANYL PF 100 MCG/2ML IVPush PRN ×2 (10:00→12:00)
[2017-07-14 11:09] LABS: HEMATOCRIT 31.5 % (34.6-47.8); WHITE BLOOD COUNT 12.6 x10^3/uL (3.4-10)
[2017-07-14 11:20] LABS: BLOOD UREA NITROGEN 8 mg/dL (7-18)
[2017-07-14 11:30] LABS: DIFF TOTAL CELLS COUNTED 100 CELL DIFF
[2017-07-14 11:32] LABS: VERIFY COUNTS? YES
[2017-07-14 11:33] LABS: ANISOCYTOSIS 1+
[2017-07-14] MEDS: MORPHINE SULFATE 4 MG/ML, 1ML IV PRN ×6 (11:57→23:40)
[2017-07-14] MEDS ORDERED: morphine SULFATE/PF 0.5 MG/ML, 10ML IV PRN (12:00)
[2017-07-14 12:28] VITALS: BP 149/79
[2017-07-14] MEDS ORDERED: POTASSIUM CHLORIDE 40 MEQ in SODIUM CHLORIDE 0.9% 100 ML IV ONE (15:30)
[2017-07-14] MEDS ORDERED: FILTER 1.2 MICRON IV SCH (17:00)
[2017-07-14] MEDS ORDERED: [UNRECOGNIZED DRUG - OTHER] IV SCH (17:00)
[2017-07-14] MEDS ORDERED: AMINO ACID 10% IV SCH (17:00)
[2017-07-14] MEDS ORDERED: FAT EMULSIONS IV SCH (17:00)
[2017-07-14] MEDS ORDERED: FENTANYL 75 MCG PATCH TD SCH (17:00)
[2017-07-14] MEDS ORDERED: DEXTROSE 70% IV SCH (17:00)
[2017-07-14] MEDS ORDERED: POTASSIUM CHLORIDE 40 MEQ in SODIUM CHLORIDE 0.9% 500 ML IV ONE (17:00)
[2017-07-14] MEDS: ENOXAPARIN 40 MG/0.4 ML SQ SCH (17:30)
[2017-07-14 19:40] VITALS: BP 163/84
[2017-07-14] MEDS ORDERED: DIPHENHYDRAMINE 50 MG/ML, 1ML IVPush ONE (22:00)
[2017-07-15] MEDS: MORPHINE SULFATE 4 MG/ML, 1ML IV PRN ×4 (01:30→17:52)
[2017-07-15 01:50] VITALS: BP 148/77
[2017-07-15] MEDS: ONDANSETRON 2MG/ML, 2ML IVPush PRN (03:53)
[2017-07-15] MEDS: AMPICILLIN/SULBACTAM 3 GM in SODIUM CHLORIDE 0.9% 100 ML IV SCH (03:53)
[2017-07-15 06:18] LABS: HEMATOCRIT 32.1 % (34.6-47.8); HEMOGLOBIN 10.3 g/dL (11.7-16.4); WHITE BLOOD COUNT 16.5 x10^3/uL (3.4-10)
[2017-07-15 06:26] LABS: BLOOD UREA NITROGEN 9 mg/dL (7-18)
[2017-07-15 07:21] VITALS: BP 147/84
[2017-07-15] MEDS: PROCHLORPERAZINE 5 MG/ML, 2ML IV SCH ×3 (08:13→17:12)
[2017-07-15] MEDS ORDERED: PANTOPRAZOLE 40 MG IV IVPush SCH (09:00)
[2017-07-15] MEDS ORDERED: MIDAZOLAM 1 MG/ML, 5ML ONE (09:33)
[2017-07-15] MEDS ORDERED: LIDOCAINE 2%, 20ML ONE (09:33)
[2017-07-15] MEDS ORDERED: FENTANYL PF 100 MCG/2ML ONE (09:33)
[2017-07-15] MEDS ORDERED: VISIPAQUE 270 MG/ML, 50ML BOTTLE ONE (11:05)
[2017-07-15] MEDS: ENOXAPARIN 40 MG/0.4 ML SQ SCH (17:12)
== END 2017-07-15 18:12 | disposition hospice, home (50) | DRG 374 ==
LOC: ED 12:47 → EDIP 15:44 → 3NW 17:08 → 4EST 06-28 08:12 → 3NW 06-30 17:21
PROVIDERS: ADMIT Internal Medicine; ATTEND Internal Medicine
PROC: 0T9B70Z Drainage of Bladder with Drainage Device, Via Natural or Artificial Opening (ICD-10-PCS; 2017-06-23)
PROC: 02HV33Z Insertion of Infusion Device into Superior Vena Cava, Percutaneous Approach (ICD-10-PCS; 2017-06-23)
PROC: B5181ZA Fluoroscopy of Superior Vena Cava using Low Osmolar Contrast, Guidance (ICD-10-PCS; 2017-06-23)
PROC: 0D9W40Z Drainage of Peritoneum with Drainage Device, Percutaneous Endoscopic Approach (ICD-10-PCS; principal; 2017-06-25)
PROC: 0W9F3ZZ Drainage of Abdominal Wall, Percutaneous Approach (ICD-10-PCS; 2017-06-25)
PROC: 0F9430Z Drainage of Gallbladder with Drainage Device, Percutaneous Approach (ICD-10-PCS; 2017-06-29)
PROC: 0F943ZZ Drainage of Gallbladder, Percutaneous Approach (ICD-10-PCS; 2017-07-12)
PROC: 0T9330Z Drainage of Right Kidney Pelvis with Drainage Device, Percutaneous Approach (ICD-10-PCS; 2017-07-12)
PROC: 0W2GX0Z Change Drainage Device in Peritoneal Cavity, External Approach (ICD-10-PCS; 2017-07-12)
PROC: 0T25X0Z Change Drainage Device in Kidney, External Approach (ICD-10-PCS; 2017-07-15)
DX: C48.2 Malignant neoplasm of peritoneum, unspecified (principal); K65.0 Generalized (acute) peritonitis; E43 Unspecified severe protein-calorie malnutrition; K65.1 Peritoneal abscess; N17.9 Acute kidney failure, unspecified; K75.0 Abscess of liver; R18.8 Other ascites; E87.1 Hypo-osmolality and hyponatremia; K90.9 Intestinal malabsorption, unspecified; N39.0 Urinary tract infection, site not specified; N13.30 Unspecified hydronephrosis; K56.69 Other intestinal obstruction; D63.8 Anemia in other chronic diseases classified elsewhere; K81.9 Cholecystitis, unspecified; R50.9 Fever, unspecified; Z68.22 Body mass index [BMI] 22.0-22.9, adult; B96.89 Other specified bacterial agents as the cause of diseases classified elsewhere; E83.39 Other disorders of phosphorus metabolism; E83.42 Hypomagnesemia; E87.6 Hypokalemia; E87.8 Other disorders of electrolyte and fluid balance, not elsewhere classified; I10 Essential (primary) hypertension; K82.8 Other specified diseases of gallbladder; N13.5 Crossing vessel and stricture of ureter without hydronephrosis; Z51.5 Encounter for palliative care; Z82.49 Family history of ischemic heart disease and other diseases of the circulatory system; Z85.038 Personal history of other malignant neoplasm of large intestine; Z90.710 Acquired absence of both cervix and uterus; K63.89 Other specified diseases of intestine
CPT/HCPCS: 36415; 36569; 49405; 50432; 50434; 50435; 74176; 74177; 75984; 75989; 76700; 76937; 76942; 77001; 78227; 80048; 80053; 80202; 81003; 82378; 82607; 82746; 83605; 83690; 83735; 84100; 84132; 84134; 85025; 85610; 85651; 86140; 86340; 87040; 87070; 87075; 87077; 87086; 87102; 87186; 87205; 87324; 88112; 88305; 89051; 96372; 99156; 99157; C1894; J0295; J1170; J1650; J1885; J2250; J2405; J2543; J3010; J3370; J3411; J3475; J3480; J3490; J7042; Q9966; Q9967; A9537; C1729; C1751; C1769; C1892; C9113; C9898; J0744; J0780; J1200; J2310; J7030; J7040; J7050; J7060; S0028